=== PATIENT | male | born 1945 | race American Indian/Alaskan Native ===

== ENCOUNTER → 2024-07-28 | Outpatient (CLI) | payer OTHER, SELFPAY ==
[2024-07-28 13:15] LABS: Collection Type, Urine Clean Catch; Squamous Epithelial Cell,Urine 0 /hpf (0-5)
[2024-07-28 13:50] LABS: Basophils # (Auto) 0.1 Thou/mm3 (0.0-0.2); Basophils % (Auto) 1 % (0-2.5); Eosinophils % (Auto) 0 % (0-10); Hematocrit 36.8 % (41.0-53.0); Hemoglobin 13.4 g/dL (13.5-16.0); Immature Granulocytes % (Auto) 0 % (0-0); Immature Granulocytes Auto 0.06 Thou/mm3 (0.00-0.00); Lymphocytes # (Auto) 5.4 Thou/mm3 (1.0-4.8); Lymphocytes % (Auto) 33 % (10-50); Mean Corpuscular HGB Conc 36.4 g/dl (31.0-37.0); Mean Corpuscular Hemoglobin 28.3 pg (25.0-35.0); Mean Corpuscular Volume 78 fL (80-100); Monocytes % (Auto) 6 % (0-12); Neutrophils # (Auto) 9.8 Thou/mm3 (1.8-7.7); Neutrophils % (Auto) 60 % (37-80); Nucleated Red Blood Cell % 0 /100 WBC (0); Platelet Count 347 Thou/mm3 (140-440); RDW Standard Deviation 39.8 fL (35.1-43.9); Red Blood Count 4.73 Miln/mm3 (4.50-5.90); White Blood Count 16.4 Thou/mm3 (3.8-10.6)
[2024-07-28 13:58] LABS: Bilirubin,Urine Negative (Negative); Blood,Urine Negative (Negative); Clarity,Urine Clear (Clear/Hazy); Color,Urine Yellow (Lt Yel-Yel); Glucose, Urine 3+ (Negative); Hyaline Casts,Urine < 1 /hpf (0-1); Ketones,Urine Negative (Negative); Leukocyte Esterase,Urine Negative (Negative); Nitrite,Urine Negative (Negative); PH,Urine 6.5 (5.0-7.0); Protein,Urine Trace (Neg - Trace); RBC,Urine 3 /hpf (0-3); Specific Gravity,Urine 1.024 (1.001-1.035); Urobilinogen,Urine Negative mg/dL (0.0-1.0); WBC,Urine < 1 /hpf (0-5)
[2024-07-28 14:16] LABS: Alanine Aminotransferase 26 U/L (10-49); Albumin, Serum 4.7 gm/dL (3.4-4.8); Alkaline Phosphatase 79 U/L (46-116); Anion Gap 9 (7-16); Aspartate Amino Transferase 23 U/L (0-34); BUN/Creatinine Ratio 18 Ratio (12-20); Bilirubin,Total 0.9 mg/dL (0.3-1.2); Blood Urea Nitrogen 28 mg/dL (9-23); Calcium 9.6 mg/dL (8.3-10.6); Calcium (Corrected) 9.6 mg/dL (8.5-10.1); Carbon Dioxide 24.3 mMol/L (20.0-31.0); Chloride 102 mMol/L (98-107); Creatinine (Component) 1.6 mg/dL (0.6-1.3); Globulin 2.3 gm/dL (2.3-3.5); Glucose 98 mg/dL (74-106); Osmolality,Calculated 275 (275-295); Potassium 4.6 mMol/L (3.4-5.1); Sodium 135 mMol/L (136-145); eGFR 44 See Note
== END | disposition home or self-care (01) ==
LOC: SCTO 12:37
PROVIDERS: PCP Internal Medicine; Referring Provider Internal Medicine Hematology & Oncology; Visit Provider Internal Medicine Hematology & Oncology
DX: C64.1 Malignant neoplasm of right kidney, except renal pelvis (principal); D72.828 Other elevated white blood cell count
CPT/HCPCS: 36415; 80053; 81001; 85025

== ENCOUNTER 2024-07-30 14:28 | Outpatient (RCR) | payer OTHER, SELFPAY ==
--- NOTE | 2024-08-03 00:06 | CTCFLWUP_ITS ---
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 S/p pembrolizumab and axitinib (05/25/2021?08/08/2020). Currently on axitinib 1 mg p.o. daily. Hypertension. Significant worsening of hypertension with pazopanib in the past. History of shingles. History of PE. Currently on Xarelto. REASON FOR TODAY?S VISIT: This is office follow-up visit. Mr. Conway is here at [facility] accompanied by his . Currently he is on axitinib 1 mg p.o. daily. He is t olerating it very well without any significant side effects. His abdominal pain is resolved. Has go od appetite and good energy levels. HISTORY OF PRESENT ILLNESS: Renaldo Conway is a 79-year-old ENG speaking male with h istory of hypertension has the following oncology history. 07/29/2012: Mr. Conway had a right nephrectomy. 11/18/2012: Patient had robotic prostatectomy for prostate cancer? 03/24/2016: Patient had lumbar depression with tumor resection for metastatic renal cell carcinoma April 2016: Patient was started on pazopanib. Unfortunately Mr. Conway was not able to tolerate pazo panib which was causing significant hypotension. Eventually pazopanib discontinued in March 2017. 11/20/2018: Mr. 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 August 2020: Mr. Conway was diagnosed with pulmonary embolus at [facility]. He was started on Xarelto. 03/31/2021: Patient had lumbar spine surgery done at [facility]. Pathology report is not av ailable to me. 04/24/2021: CT scan of the chest with contrast? 05/25/2021: Patient received first cycle of pembrolizumab. Patient also started taking axitinib 1 mg p.o. twice daily on the same day. 09/06/2021: MRI of the lumbar spine without contrast? 10/05/2021: CT scan of the chest abdomen and pelvis with IV contrast? 10/05/2021: CT scan of the lumbar spine without contrast? 03/31/2022: 08/27/2022: CT scan of the chest abdomen and pelvis with IV contrast 12/26/2022: CT scan of the chest abdomen and pelvis with IV contrast 04/23/2023: CT scan of the chest abdomen and pelvis with IV contrast 08/12/2023: PET/CT scan 04/20/2024: CT scan of the chest abdomen and pelvis with IV contrast PAST MEDICAL HISTORY: HTN Metastatic Renal cell Prostate cancer Neuropathy PE - Aug 2020 PAST SURGICAL HISTORY: Right nephrectomy - 2011 Splenectomy and resection pancrreas- 2018 Appendectomy Right inguinal hernia x 2 Sinus surgery - 2018 MEDICATIONS: 1. axitinib - 1 mg 1 tab Daily 2. FLUoxetine - 10 mg 1 tab Daily 3. losartan - 100 mg 1 tab Daily 4. pantoprazole - 20 mg 1 tab Twice a Day 5. pregabalin - 50 mg 2 Capsule Daily 6. timolol - 0.25 % As directed 7. Xarelto - 20 mg 1 tab Daily 8. Xarelto - 15 mg 1 tab Daily?Palabra Meds? Medications Last Reconciled by Beth Dietrich MA on 04/29/2024 ALLERGIES: No Known Drug Allergies REVIEW OF SYSTEMS:?Clone ROS? Neurological: No headache, seizures or blurring of vision. Gastrointestinal: No nausea, vomiting, diarrhea or constipation. Cardiovascular: No palpitations or angina pains. Respiratory: No cough, chest pain or shortness of breath. PHYSICAL EXAMINATION:?ClonePE? VITAL SIGNS: Temperature?99, B/P?142/88, Oxygen?Saturation?97% Weight?272?lbs PAIN: 0 - No pain EYE: Conjunctivae is white MOUTH: Oral cavity is dry. CHEST: Clear to auscultation. No wheezes or rales audible. CARDIAC: Rhythm regular, no murmurs or gallops present. ABDOMEN: Soft. No hepatomegaly. No splenomegaly. EXTREMITIES: No pedal edema or cyanosis. ASSESSMENT: #1 Metastatic renal cell carcinoma, clear-cell type with worsening pulmonary mets as well as retroper itoneal mets as described above. Patient was treated with pazopanib in the past which needed to be discontinued due to significant hyp ertension. Mr. Conway is currently on pembrolizumab and axitinib started on 05/25/2021. Patient stopped axitinib and keytruda after he was in remission 07/22/2024 CT scan shows new 10 mm nodule in the lung which is new MRI of the abdomen is negative Will get PET CT scan to see if the nodule need biopsy Patient is on 1 mg axitinib Do not want to increase the medicine until he is confirmed that he has recurrence RTC after PET scan 2)Hypertension His blood pressure is stable. History of hypertension currently on losartan, amlodipine. 3)History of PE. Was on Xarelto. Xarelto discontinued recently by Dr. Shawn Campos. Electronically Signed by: {Object.Sanct_ID*PnP.NameFL@M}, {Object.Sanct_ID*PnP.Suffix@U} D: {Object.Sanct_Date} T: {Object.Sanct_Time} CC: PCP: Paty Richards (tuleriver) Referring: Steve)Paty This document was completed utilizing speech recognition software. Grammatical errors, random word in sertions, pronoun errors, and incomplete sentences are an occasional consequence of this system due t o software limitations, ambient noise, and hardware issues. Any formal questions or concerns about e content, text or information contained within the body of this dictation should be directly address ed to the provider for clarification.
== END 2024-08-08 23:59 | disposition home or self-care (01) ==
LOC: SCTC 14:28
PROVIDERS: PCP Internal Medicine; Referring Provider Internal Medicine; Visit Provider Internal Medicine Hematology & Oncology
DX: C64.1 Malignant neoplasm of right kidney, except renal pelvis (principal); C78.01 Secondary malignant neoplasm of right lung; C78.6 Secondary malignant neoplasm of retroperitoneum and peritoneum; I10 Essential (primary) hypertension; Z86.711 Personal history of pulmonary embolism
CPT/HCPCS: 99212; G0463

== ENCOUNTER → 2024-07-30 | Outpatient (CLI) | payer OTHER, SELFPAY ==
--- NOTE | 2024-07-30 12:30 | XR_ITS ---
Examination: MRI abdomen with intravenous contrast. MRI abdomen without intravenous contrast. Date and time of exam: July 30, 2024 1349 hours COMPARISON: November 28, 2015 INDICATIONS: Diagnosis renal carcinoma post right nephrectomy splenectomy tail the pancreas removal Technique: Multiple axial, sagittal and coronal sections of the abdomen obtained. Transverse images, TR 6020, TE 107. T1 weighted transverse images, TR 582, TE 9.5. T2-weighted sagittal images, TR 4000, TE 105. T2-weighted sagittal images, TR 4000, TE 5. Coronal images, TR 4210, TE 107. Axial and coronal images are obtained post 5 cc intravenous injection, gadolinium. Findings: No focal liver lesions Gallstones, negative for cholecystitis No common hepatic or common bile duct stones Spleen is not enlarged Absent right kidney Lower pole left renal cyst 34 mm No solid renal mass lesion No soft tissue tumor in the renal fossa No interval abdominal lymphadenopathy No bowel obstruction No ascites IMPRESSION: No interval findings of metastatic disease
== END | disposition home or self-care (01) ==
LOC: SMRI 12:15
PROVIDERS: PCP Internal Medicine; Referring Provider Internal Medicine Hematology & Oncology; Visit Provider Internal Medicine Hematology & Oncology
DX: C64.1 Malignant neoplasm of right kidney, except renal pelvis (principal); D72.828 Other elevated white blood cell count
CPT/HCPCS: 74183; A9579

== ENCOUNTER → 2024-09-03 | Outpatient (CLI) | payer OTHER, SELFPAY ==
--- NOTE | 2024-09-03 15:30 | XR_ITS ---
EXAMINATION: PET/CT FUSION SKULL TO THIGH EXAM DATE AND TIME: September 03, 2024 1613 hours INDICATIONS: Diagnosis renal cancer post treatment restaging CTDI:vol (mGy) 9.6 DLP: (mGycm) 1005.63 PROCEDURE: 16.86 mCi FDG was administered intravenously To allow for distribution and uptake of radiotracer, the patient was allowed to rest quietly in a shielded room. Imaging was performed on an integrated 16-slice PET/CT scanner, with scanning from the skull base to the mid thigh. Serum blood glucose at the time of the injection was measured 86 mg/dL. CT scanning was performed without oral or intravenous contrast material. FINDINGS: Head and Neck: There is no lyudmila hypermetabolism in the neck. The visualized portions of the brain are normal in appearance on CT. Chest: There is no lyudmila hypermetabolism in the chest. There are no pulmonary nodules. Abdomen and Pelvis: There is no lyudmila hypermetabolism in retroperitoneal or pelvic chains. The spleen is normal in size and FDG avidity. Musculoskeletal: Marrow uptake is within normal range. IMPRESSION: No interval metastatic disease Please see the high-resolution CT chest report July 22, 2024 at C4 6 month follow-up CT chest
== END | disposition home or self-care (01) ==
LOC: CDIM 15:21
PROVIDERS: PCP Internal Medicine; Referring Provider Internal Medicine Hematology & Oncology; Visit Provider Internal Medicine Hematology & Oncology
DX: D72.828 Other elevated white blood cell count (principal); C64.1 Malignant neoplasm of right kidney, except renal pelvis
CPT/HCPCS: 78815; A9552

== ENCOUNTER → 2024-09-10 | Outpatient (CLI) | payer OTHER, SELFPAY ==
[2024-09-10 16:26] LABS: Basophils # (Auto) 0.1 Thou/mm3 (0.0-0.2); Basophils % (Auto) 1 % (0-2.5); Eosinophils % (Auto) 0 % (0-10); Hematocrit 32.8 % (41.0-53.0); Hemoglobin 11.7 g/dL (13.5-16.0); Immature Granulocytes % (Auto) 1 % (0-0); Immature Granulocytes Auto 0.07 Thou/mm3 (0.00-0.00); Lymphocytes # (Auto) 5.4 Thou/mm3 (1.0-4.8); Lymphocytes % (Auto) 39 % (10-50); Mean Corpuscular HGB Conc 35.7 g/dl (31.0-37.0); Mean Corpuscular Hemoglobin 28.4 pg (25.0-35.0); Mean Corpuscular Volume 80 fL (80-100); Monocytes # (Auto) 1.2 Thou/mm3 (0.0-0.8); Monocytes % (Auto) 8 % (0-12); Neutrophils # (Auto) 7.2 Thou/mm3 (1.8-7.7); Neutrophils % (Auto) 52 % (37-80); Nucleated Red Blood Cell % 0 /100 WBC (0); Platelet Count 270 Thou/mm3 (140-440); RDW Standard Deviation 41.8 fL (35.1-43.9); Red Blood Count 4.12 Miln/mm3 (4.50-5.90)
[2024-09-10 16:53] LABS: Alanine Aminotransferase 24 U/L (10-49); Albumin, Serum 4.5 gm/dL (3.4-4.8); Alkaline Phosphatase 61 U/L (46-116); Anion Gap 8 (7-16); Aspartate Amino Transferase 16 U/L (0-34); BUN/Creatinine Ratio 22 Ratio (12-20); Bilirubin,Total 0.5 mg/dL (0.3-1.2); Blood Urea Nitrogen 37 mg/dL (9-23); Calcium 9.5 mg/dL (8.3-10.6); Calcium (Corrected) 9.5 mg/dL (8.5-10.1); Carbon Dioxide 27.2 mMol/L (20.0-31.0); Chloride 103 mMol/L (98-107); Creatinine (Component) 1.7 mg/dL (0.6-1.3); Globulin 2.2 gm/dL (2.3-3.5); Glucose 93 mg/dL (74-106); Osmolality,Calculated 284 (275-295); Potassium 4.4 mMol/L (3.4-5.1); Sodium 138 mMol/L (136-145); Total Protein 6.7 gm/dL (5.7-8.2); eGFR 41 See Note
== END | disposition home or self-care (01) ==
LOC: SCTO 14:40
PROVIDERS: PCP Nurse Practitioner Family; Referring Provider Internal Medicine Hematology & Oncology; Visit Provider Internal Medicine Hematology & Oncology
DX: C64.1 Malignant neoplasm of right kidney, except renal pelvis (principal); D72.828 Other elevated white blood cell count
CPT/HCPCS: 36415; 80053; 85025

== ENCOUNTER 2024-09-14 13:02 | Outpatient (RCR) | payer OTHER, SELFPAY | END 2024-10-09 23:59 | disposition home or self-care (01) | LOC: SCTC 13:02 | PROVIDERS: PCP Nurse Practitioner Family; Referring Provider Nurse Practitioner Family; Visit Provider Nurse Practitioner Family | DX: C64.1 Malignant neoplasm of right kidney, except renal pelvis (principal); C78.02 Secondary malignant neoplasm of left lung; C78.01 Secondary malignant neoplasm of right lung; C78.6 Secondary malignant neoplasm of retroperitoneum and peritoneum; I10 Essential (primary) hypertension; Z86.711 Personal history of pulmonary embolism | CPT/HCPCS: 99212; G0463 ==

== ENCOUNTER → 2024-11-17 | Outpatient (CLI) | payer OTHER, SELFPAY ==
[2024-11-17 12:38] LABS: Basophils # (Auto) 0.1 Thou/mm3 (0.0-0.2); Basophils % (Auto) 1 % (0-2.5); Eosinophils % (Auto) 0 % (0-10); Hematocrit 37.9 % (41.0-53.0); Hemoglobin 13.1 g/dL (13.5-16.0); Immature Granulocytes % (Auto) 0 % (0-0); Immature Granulocytes Auto 0.04 Thou/mm3 (0.00-0.00); Lymphocytes % (Auto) 46 % (10-50); Mean Corpuscular HGB Conc 34.6 g/dl (31.0-37.0); Mean Corpuscular Volume 81 fL (80-100); Monocytes # (Auto) 1.1 Thou/mm3 (0.0-0.8); Monocytes % (Auto) 8 % (0-12); Neutrophils # (Auto) 5.8 Thou/mm3 (1.8-7.7); Neutrophils % (Auto) 45 % (37-80); Nucleated Red Blood Cell % 0 /100 WBC (0); Platelet Count 269 Thou/mm3 (140-440); RDW Standard Deviation 42.9 fL (35.1-43.9); Red Blood Count 4.68 Miln/mm3 (4.50-5.90)
[2024-11-17 12:59] LABS: Alanine Aminotransferase 23 U/L (10-49); Albumin, Serum 4.5 gm/dL (3.4-4.8); Albumin/Globulin Ratio 2.3 (1.2-2.2); Alkaline Phosphatase 61 U/L (46-116); Anion Gap 5 (7-16); Aspartate Amino Transferase 20 U/L (0-34); BUN/Creatinine Ratio 19 Ratio (12-20); Bilirubin,Total 0.5 mg/dL (0.3-1.2); Blood Urea Nitrogen 33 mg/dL (9-23); Calcium 9.6 mg/dL (8.3-10.6); Calcium (Corrected) 9.6 mg/dL (8.5-10.1); Carbon Dioxide 25.7 mMol/L (20.0-31.0); Chloride 109 mMol/L (98-107); Creatinine (Component) 1.7 mg/dL (0.6-1.3); Glucose 94 mg/dL (74-106); Osmolality,Calculated 286 (275-295); Potassium 4.9 mMol/L (3.4-5.1); Sodium 140 mMol/L (136-145); Total Protein 6.5 gm/dL (5.7-8.2); eGFR 41 See Note
== END | disposition home or self-care (01) ==
LOC: SCTO 11:14
PROVIDERS: PCP Nurse Practitioner Family; Referring Provider Nurse Practitioner Family; Visit Provider Nurse Practitioner Family
DX: C64.1 Malignant neoplasm of right kidney, except renal pelvis (principal); D72.828 Other elevated white blood cell count
CPT/HCPCS: 36415; 80053; 85025

== ENCOUNTER 2024-11-18 13:00 | Outpatient (RCR) | payer OTHER, SELFPAY ==
--- NOTE | 2024-12-06 22:34 | CTCFLWUP_ITS ---
Patient: RENALDO CONWAY : 1945 Page 9 of 9 FOLLOW UP NOTE DATE OF SERVICE: 11/18/2024 NAME: RENALDO CONWAY ACCOUNT: [id number] : 1945 AGE: 79 INTERVAL HISTORY: Patient is here for follow-up visit for kidney cancer. Patient is currently on axitinib 1 mg p.o. daily. Tolerating it well without any side effects. PET/CT show no interval metastatic disease, pulmonary nodule. Patient reports good energy levels, has been active at home. Reports good appetite. Patient accompanied by , no concerns from and patient. 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 S/p pembrolizumab and axitinib (05/25/2021?08/08/2020). Patient requested a break from pembrolizumab Currently on axitinib 1 mg p.o. daily. Hypertension. Significant worsening of hypertension with pazopanib in the past. 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 DIAGNOSIS: Malignant neoplasm of right kidney, except renal pelvis [ICD10] C64.1 DATE OF DIAGNOSIS: 07/29/2012 STAGE/TNM: Stage IV right kidney renal cell carcinoma, clear?cell type with pulmonary mets as well as retroperitoneal mets. TREATMENT HISTORY: Care?Plan Start?Date Cycle Day Intent [id number]?200 05/25/2021 1 21 Palliative HISTORY OF PRESENT ILLNESS: Renaldo Conway is a 79-year-old ENG speaking male with history of hypertension has the following oncology history. 07/29/2012: Mr. Conway had a right nephrectomy. 11/18/2012: Patient had robotic prostatectomy for prostate cancer? 03/24/2016: Patient had lumbar depression with tumor resection for metastatic renal cell carcinoma April 2016: Patient was started on pazopanib. Unfortunately Mr. Conway was not able to tolerate pazopanib which was causing significant hypotension. Eventually pazopanib discontinued in March 2017. 11/20/2018: Mr. 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 August 2020: Mr. Conway was diagnosed with pulmonary embolus at [facility]. He was started on Xarelto. 03/31/2021: Patient had lumbar spine surgery done at [facility]. Pathology report is not available to me. 04/24/2021: CT scan of the chest with contrast? 05/25/2021: Patient received first cycle of pembrolizumab. Patient also started taking axitinib 1 mg p.o. twice daily on the same day. 09/06/2021: MRI of the lumbar spine without contrast? 10/05/2021: CT scan of the chest abdomen and pelvis with IV contrast? 10/05/2021: CT scan of the lumbar spine without contrast? 03/31/2022: 08/27/2022: CT scan of the chest abdomen and pelvis with IV contrast 12/26/2022: CT scan of the chest abdomen and pelvis with IV contrast 04/23/2023: CT scan of the chest abdomen and pelvis with IV contrast 08/12/2023: PET/CT scan 04/20/2024: CT scan of the chest abdomen and pelvis with IV contrast OTHER MEDICAL HISTORY/CONDITIONS: Hypertension Diabetes FAMILY HISTORY: SOCIAL HISTORY: MEDICATIONS: 1. axitinib - 1 mg 1 tab Daily 2. FLUoxetine - 20 mg 1 Capsule As directed 3. Jardiance - 25 mg 1 tab Daily 4. olmesartan - 40 mg 1 tab As directed 5. Ozempic - 0.25 mg or 0.5 mg(2 mg/1.5 mL) 1 Weekly 6. pantoprazole - 40 mg 1 Daily 7. pantoprazole - 20 mg 1 tab Twice a Day 8. timolol - 0.25 % As directed 9. Xarelto - 20 mg 1 tab Daily 10. Xarelto - 15 mg 1 tab Daily Medications Last Reconciled by Eve Rodarte MD on 11/18/2024 ALLERGIES: No Known Drug Allergies REVIEW OF SYSTEMS: A complete 14-point review of systems was performed and is negative except as noted in interval history. PHYSICAL EXAMINATION: VITAL SIGNS: Temperature?99.3, B/P?137/88, Oxygen?Saturation?94% Weight?279?lbs PAIN: 0 - No pain ECOG Performance Status: None EYE: Conjunctivae is white MOUTH: No lesions CHEST: No respiratory distress CARDIAC: Rhythm regular. EXTREMITIES: No cyanosis. LABORATORY DATA: I have personally reviewed and interpreted each of the patient?s relevant lab tests, abnormal findings are below: Date 09/10/24 11/17/24 ??WHITE?BLOOD?COUNT?(Thou/mm3) ? 14.0?H 13.0?H ??RED?BLOOD?COUNT?(Miln/mm3) ? 4.12?L 4.68 ??HEMOGLOBIN?(gm/dl) ? 11.7?L 13.1?L ??HEMATOCRIT?(%) ? 32.8?L 37.9?L ??PLATELET?COUNT?(Thou/mm3) ? 270 269 ??NEUTROPHILS?%,?AUTO?(%) ? 52 45 ??LYMPH?%,?AUTO?(%) ? 39 46 ??NEUTROPHILS,?AUTO?(Thou/mm3) ? 7.2 5.8 ??GLUCOSE,RANDOM?(mg/dL) 93 ? 94 ??BLOOD?UREA?NITROGEN?(mg/dL) 37?H ? 33?H ??CREATININE?(mg/dL) 1.70?H ? 1.70?H ??SODIUM?(mmol/L) 138 ? 140 ??POTASSIUM?(mmol/L) 4.4 ? 4.9 ??CHLORIDE?(mmol/L) 103 ? 109?H ??CrCl?(CandG)?(ml/min) 48.07 ? 48.61 ??AST/SGOT?(Unit/L) 16 ? 20 ??ALT/SGPT?(Unit/L) 24 ? 23 ??ALKALINE?PHOSPHATASE?(Unit/L) 61 ? 61 ??BILIRUBIN,?TOTAL?(mg/dL) 0.5 ? 0.5 ??PROTEIN?TOTAL?(gm/dl) 6.7 ? 6.5 ??ALBUMIN,?SERUM?(gm/dl) 4.5 ? 4.5 ??GLOBULIN?(gm/dl) 2.2?L ? 2.0?L ??ALBUMIN/GLOBULIN?RATIO 2.0 ? 2.3?H ??CALCIUM,?SERUM?(mg/dL) 9.5 ? 9.6 ??CALCIUM?SERUM?(CORRECTED)?(mg/dL) 9.5 ? 9.6 ASSESSMENT/PLAN: 1. Metastatic renal cell carcinoma, clear-cell type with worsening pulmonary mets as well as retroperitoneal mets as described above. Patient was treated with pazopanib in the past which needed to be discontinued due to significant hypertension. Mr. Conway is currently on axitinib 1 mg started on 05/25/2021, patient reports previously he was unable to tolerate increased dosage due to increase in hypertension. Patient stopped axitinib and keytruda after he was in remission, Patient restarted axitinib Continues on break from Keytruda, patient requested break from Keytruda, was tolerating it well when he was on. 07/22/2024 CT scan shows new 10 mm nodule in the lung which is new MRI of the abdomen is negative PET CT scan was negative for interval metastatic disease, no pulmonary nodules. Continue with axitinib at 1 mg daily as PET/CT did not show recurrence. Do not want to increase the medicine until he is confirmed that he has recurrence 2. Hypertension His blood pressure is stable. currently on losartan, amlodipine. 3. History of PE. Was on Xarelto. Xarelto discontinued recently by Dr. Shawn Campos. CBC CMP CT chest without contrast, 6-month follow-up due 01/2025 ORDERS: Order # Description [id number] Comprehensive Metabolic Panel - 12 + CBC with Auto Diff RETURN TO CLINIC: 4 months BILLING AND COMPLIANCE: I reviewed external records from providers outside my specialty as summarized above. I spent a total of 50 minutes on this patient?s care on the day of their visit excluding time spent related to any billed procedures. This time includes time spent with the patient as well as time spent documenting in the medical record, reviewing patients records and tests, obtaining history, placing orders, communicating with other healthcare professionals, counseling the patient, family or caregiver, and/or care coordination for the diagnoses above. Electronically Signed by: {Object.Sanct_ID*PnP.NameFL@M}, {Object.Sanct_ID*PnP.Suffix@U} D: {Object.Sanct_Date} T: {Object.Sanct_Time} CC: PCP: Paty Richards (tuleriver) Referring: Paty Richards (tuleriver) This document was completed utilizing speech recognition software. Grammatical errors, random word insertions, pronoun errors, and incomplete sentences are an occasional consequence of this system due to software limitations, ambient noise, and hardware issues. Any formal questions or concerns about the content, text or information contained within the body of this dictation should be directly addressed to the provider for clarification.
== END 2024-12-07 23:59 | disposition home or self-care (01) ==
LOC: SCTC 13:00
PROVIDERS: PCP Nurse Practitioner Family; Referring Provider Nurse Practitioner Family; Visit Provider Family Medicine
DX: C64.1 Malignant neoplasm of right kidney, except renal pelvis (principal); C78.02 Secondary malignant neoplasm of left lung; C78.01 Secondary malignant neoplasm of right lung; C78.6 Secondary malignant neoplasm of retroperitoneum and peritoneum; I10 Essential (primary) hypertension; Z86.711 Personal history of pulmonary embolism
CPT/HCPCS: 99212; G0463

== ENCOUNTER → 2024-12-15 | Outpatient (CLI) | payer OTHER, SELFPAY ==
[2024-12-15 09:26] LABS: Misc Send Out* See Sep Rpt
== END | disposition home or self-care (01) ==
PROVIDERS: PCP Nurse Practitioner Family; Referring Provider Internal Medicine Hematology & Oncology; Visit Provider Internal Medicine Hematology & Oncology
DX: C64.1 Malignant neoplasm of right kidney, except renal pelvis (principal); D72.828 Other elevated white blood cell count

== ENCOUNTER 2025-01-21 13:02 | Outpatient (RCR) | payer MEDICAID, OTHER, SELFPAY ==
[2025-01-13 09:18] LABS: Basophils # (Auto) 0.1 Thou/mm3 (0.0-0.2); Basophils % (Auto) 0 % (0-2.5); Eosinophils # (Auto) 0.1 Thou/mm3 (0.0-0.5); Eosinophils % (Auto) 1 % (0-10); Hematocrit 39.6 % (41.0-53.0); Hemoglobin 14.3 g/dL (13.5-16.0); Immature Granulocytes % (Auto) 0 % (0-0); Immature Granulocytes Auto 0.05 Thou/mm3 (0.00-0.00); Lymphocytes % (Auto) 34 % (10-50); Mean Corpuscular HGB Conc 36.1 g/dl (31.0-37.0); Mean Corpuscular Hemoglobin 28.7 pg (25.0-35.0); Mean Corpuscular Volume 79 fL (80-100); Monocytes # (Auto) 1.1 Thou/mm3 (0.0-0.8); Monocytes % (Auto) 9 % (0-12); Neutrophils # (Auto) 6.5 Thou/mm3 (1.8-7.7); Neutrophils % (Auto) 55 % (37-80); Nucleated Red Blood Cell # 0.02 Thou/mm3 (0.00-0.00); Nucleated Red Blood Cell % 0 /100 WBC (0); Platelet Count 304 Thou/mm3 (140-440); Red Blood Count 4.99 Miln/mm3 (4.50-5.90); White Blood Count 11.8 Thou/mm3 (3.8-10.6)
[2025-01-13 09:38] LABS: Alanine Aminotransferase 19 U/L (10-49); Albumin, Serum 4.5 gm/dL (3.4-4.8); Albumin/Globulin Ratio 1.9 (1.2-2.2); Alkaline Phosphatase 70 U/L (46-116); Anion Gap 9 (7-16); Aspartate Amino Transferase 17 U/L (0-34); BUN/Creatinine Ratio 13 Ratio (12-20); Blood Urea Nitrogen 20 mg/dL (9-23); Calcium 9.4 mg/dL (8.3-10.6); Calcium (Corrected) 9.4 mg/dL (8.5-10.1); Carbon Dioxide 26.7 mMol/L (20.0-31.0); Chloride 103 mMol/L (98-107); Creatinine (Component) 1.6 mg/dL (0.6-1.3); Globulin 2.4 gm/dL (2.3-3.5); Glucose 94 mg/dL (74-106); Osmolality,Calculated 280 (275-295); Potassium 3.9 mMol/L (3.4-5.1); Sodium 139 mMol/L (136-145); Total Protein 6.9 gm/dL (5.7-8.2); eGFR 44 See Note
--- NOTE | 2025-01-28 14:18 | CTCFLWUP_ITS ---
Patient: RENALDO CONWAY : 1945 Page 8 of 10 FOLLOW UP NOTE DATE OF SERVICE: 01/21/2025 NAME: RENALDO CONWAY ACCOUNT: [id number] : 1945 AGE: 80 INTERVAL HISTORY: Patient is here for follow-up visit for kidney cancer. Patient is currently on axitinib 1 mg p.o. daily. Tolerating it well without any side effects. PET/CT show no interval metastatic disease, pulmonary nodule. Patient reports good energy levels, has been active at home. Reports good appetite. Patient accompanied by , no concerns from and patient. Subjective: Chief Complaint Nausea and vomiting for about a week and a half, loss of appetite, excessive sleepiness History of Present Illness Jann Dugan, an 80-year-old male with a history of kidney cancer, presents for follow-up. He reports experiencing nausea and vomiting for about a week and a half, along with decreased appetite and increased sleepiness. Mr. Dugan has been taking Zofran to manage his nausea and vomiting. He reports that the medication has been effective in controlling these symptoms, with his last dose taken the night before the visit. He mentions that he hasn't experienced nausea or vomiting since taking the medication. The patient also notes that he has been sleeping more than usual, which he attributes to possibly having the flu. Mr. Dugan has recently started taking Ozempic, which he reports makes him feel miserable, weak, and reduces his desire to eat. As a result of these medication effects and symptoms, he has lost 17 pounds. The patient expresses concern about these symptoms, particularly mentioning that excessive sleepiness could be a sign of a brain tumor. Regarding his cancer treatment, Mr. Dugan is currently taking 1 mg of axitinib. His last PET scan in August was negative, indicating no evidence of active cancer at that time. The patient has a history of multiple cancer-related surgeries, including removal of his main kidney in 2011, tumor removal from his spine in 2015, and removal of his pancreas and spleen in 2019 due to metastatic kidney cancer. Medications and Supplements - Axitinib 1 mg - Zofran - Used for nausea and vomiting - Ozempic - Causes nausea, weakness, and loss of appetite - Patient lost 17 pounds Review of Systems General: Positive for fatigue, decreased appetite, and weight loss. Gastrointestinal: Positive for nausea and vomiting. Neurological: Positive for excessive sleepiness. 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 S/p pembrolizumab and axitinib (05/25/2021?08/08/2020). Patient requested a break from pembrolizumab Currently on axitinib 1 mg p.o. daily. Hypertension. Significant worsening of hypertension with pazopanib in the past. 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 DIAGNOSIS: Malignant neoplasm of right kidney, except renal pelvis [ICD10] C64.1 DATE OF DIAGNOSIS: 07/29/2012 STAGE/TNM: Stage IV right kidney renal cell carcinoma, clear?cell type with pulmonary mets as well as retroperitoneal mets. TREATMENT HISTORY: Care?Plan Start?Date Cycle Day Intent KEYTRUDA?200 05/25/2021 1 21 Palliative HISTORY OF PRESENT ILLNESS: Renaldo Conway is a 80-year-old ENG speaking male with history of hypertension has the following oncology history. 07/29/2012: Mr. Conway had a right nephrectomy. 11/18/2012: Patient had robotic prostatectomy for prostate cancer? 03/24/2016: Patient had lumbar depression with tumor resection for metastatic renal cell carcinoma April 2016: Patient was started on pazopanib. Unfortunately Mr. Conway was not able to tolerate pazopanib which was causing significant hypotension. Eventually pazopanib discontinued in March 2017. 11/20/2018: Mr. 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 August 2020: Mr. Conway was diagnosed with pulmonary embolus at [facility]. He was started on Xarelto. 03/31/2021: Patient had lumbar spine surgery done at [facility]. Pathology report is not available to me. 04/24/2021: CT scan of the chest with contrast? 05/25/2021: Patient received first cycle of pembrolizumab. Patient also started taking axitinib 1 mg p.o. twice daily on the same day. 09/06/2021: MRI of the lumbar spine without contrast? 10/05/2021: CT scan of the chest abdomen and pelvis with IV contrast? 10/05/2021: CT scan of the lumbar spine without contrast? 03/31/2022: 08/27/2022: CT scan of the chest abdomen and pelvis with IV contrast 12/26/2022: CT scan of the chest abdomen and pelvis with IV contrast 04/23/2023: CT scan of the chest abdomen and pelvis with IV contrast 08/12/2023: PET/CT scan 04/20/2024: CT scan of the chest abdomen and pelvis with IV contrast OTHER MEDICAL HISTORY/CONDITIONS: Hypertension Diabetes FAMILY HISTORY: SOCIAL HISTORY: MEDICATIONS: 1. axitinib - 1 mg 1 tab Daily 2. FLUoxetine - 20 mg 1 Capsule As directed 3. olmesartan - 40 mg 1 tab As directed 4. timolol - 0.25 % As directed 5. Xarelto - 20 mg 1 tab Daily 6. Xarelto - 15 mg 1 tab Daily Medications Last Reconciled by Beth Dietrich MA on 01/21/2025 ALLERGIES: No Known Drug Allergies REVIEW OF SYSTEMS: A complete 14-point review of systems was performed and is negative except as noted in interval history. PHYSICAL EXAMINATION: VITAL SIGNS: Temperature?96.8, B/P?111/75, Oxygen?Saturation?95% Weight?265?lbs PAIN: 0 - No pain ECOG Performance Status: None EYE: Conjunctivae is white MOUTH: No lesions CHEST: No respiratory distress CARDIAC: Rhythm regular. EXTREMITIES: No cyanosis. LABORATORY DATA: I have personally reviewed and interpreted each of the patient?s relevant lab tests, abnormal findings are below: Date 11/17/24 01/13/25 ??WHITE?BLOOD?COUNT?(Thou/mm3) 13.0?H 11.8?H ??RED?BLOOD?COUNT?(Miln/mm3) 4.68 4.99 ??HEMOGLOBIN?(gm/dl) 13.1?L 14.3 ??HEMATOCRIT?(%) 37.9?L 39.6?L ??PLATELET?COUNT?(Thou/mm3) 269 304 ??NEUTROPHILS?%,?AUTO?(%) 45 55 ??LYMPH?%,?AUTO?(%) 46 34 ??NEUTROPHILS,?AUTO?(Thou/mm3) 5.8 6.5 ??GLUCOSE,RANDOM?(mg/dL) 94 94 ??BLOOD?UREA?NITROGEN?(mg/dL) 33?H 20 ??CREATININE?(mg/dL) 1.70?H 1.60?H ??SODIUM?(mmol/L) 140 139 ??POTASSIUM?(mmol/L) 4.9 3.9 ??CHLORIDE?(mmol/L) 109?H 103 ??CrCl?(CandG)?(ml/min) 48.61 51.17 ??AST/SGOT?(Unit/L) 20 17 ??ALT/SGPT?(Unit/L) 23 19 ??ALKALINE?PHOSPHATASE?(Unit/L) 61 70 ??BILIRUBIN,?TOTAL?(mg/dL) 0.5 1.0 ??PROTEIN?TOTAL?(gm/dl) 6.5 6.9 ??ALBUMIN,?SERUM?(gm/dl) 4.5 4.5 ??GLOBULIN?(gm/dl) 2.0?L 2.4 ??ALBUMIN/GLOBULIN?RATIO 2.3?H 1.9 ??CALCIUM,?SERUM?(mg/dL) 9.6 9.4 ??CALCIUM?SERUM?(CORRECTED)?(mg/dL) 9.6 9.4 ASSESSMENT/PLAN: 1. Metastatic renal cell carcinoma, clear-cell type with worsening pulmonary mets as well as retroperitoneal mets as described above. Patient was treated with pazopanib in the past which needed to be discontinued due to significant hypertension. Mr. Conway is currently on axitinib 1 mg started on 05/25/2021, patient reports previously he was unable to tolerate increased dosage due to increase in hypertension. Patient stopped axitinib and keytruda after he was in remission, Patient restarted axitinib Continues on break from Keytruda, patient requested break from Keytruda, was tolerating it well when he was on. 07/22/2024 CT scan shows new 10 mm nodule in the lung which is new MRI of the abdomen is negative PET CT scan was negative for interval metastatic disease, no pulmonary nodules. Continue with axitinib at 1 mg daily as PET/CT did not show recurrence. Do not want to increase the medicine until he is confirmed that he has recurrence Plan: - Continue axitinib 1 mg (dose and frequency not specified) - Cancel scheduled CT scan of chest on January 27, 2025 - Proceed with whole body PET-CT scan on February 04, 2025 - Schedule MRI brain for surveillance (timing not specified) - Attempt to obtain 2012 kidney specimen for Betsy testing - Follow-up after PET-CT scan results Nausea and Vomiting Assessment: Patient reports nausea and vomiting for approximately 1.5 weeks, possibly related to recent Ozempic injection. Symptoms have been partially controlled with ondansetron (Zofran). Differential diagnosis includes medication side effect (Ozempic), viral illness, or less likely, brain metastasis. Plan: - Continue ondansetron (Zofran) as needed for nausea and vomiting - Consider discontinuing Ozempic if symptoms persist or worsen - Monitor for resolution of symptoms Fatigue Assessment: Patient reports increased sleepiness and fatigue. This could be related to recent nausea and vomiting, medication side effects, or underlying illness. Plan: - Monitor fatigue symptoms - Reassess after resolution of nausea and vomiting 2. Hypertension His blood pressure is stable. currently on losartan, amlodipine. 3. History of PE. Was on Xarelto. Xarelto discontinued recently by Dr. Shawn Campos. CBC CMP CT chest without contrast, 6-month follow-up due 01/2025?just complete pet scan only ORDERS: Order # Description RETURN TO CLINIC: BILLING AND COMPLIANCE: I reviewed external records from providers outside my specialty as summarized above. I spent a total of 50 minutes on this patient?s care on the day of their visit excluding time spent related to any billed procedures. This time includes time spent with the patient as well as time spent documenting in the medical record, reviewing patients records and tests, obtaining history, placing orders, communicating with other healthcare professionals, counseling the patient, family or caregiver, and/or care coordination for the diagnoses above. Electronically Signed by: {Object.Sanct_ID*PnP.NameFL@M}, {Object.Sanct_ID*PnP.Suffix@U} D: {Object.Sanct_Date} T: {Object.Sanct_Time} CC: PCP: Maurice(robert)Paty Referring: Steve)Paty This document was completed utilizing speech recognition software. Grammatical errors, random word insertions, pronoun errors, and incomplete sentences are an occasional consequence of this system due to software limitations, ambient noise, and hardware issues. Any formal questions or concerns about the content, text or information contained within the body of this dictation should be directly addressed to the provider for clarification.
== END 2025-02-06 23:59 | disposition home or self-care (01) ==
LOC: SCTC 13:02
PROVIDERS: Nurse Practitioner Family; PCP Nurse Practitioner Family; Referring Provider Nurse Practitioner Family; Visit Provider Internal Medicine Hematology & Oncology
DX: C64.1 Malignant neoplasm of right kidney, except renal pelvis (principal); R11.2 Nausea with vomiting, unspecified; R53.83 Other fatigue; I10 Essential (primary) hypertension; Z86.711 Personal history of pulmonary embolism
CPT/HCPCS: 80053; 85025; 96360; 99212; J7040; G0463

== ENCOUNTER 2025-02-01 14:38 | Emergency (ER) | payer MEDICARE, MEDICAID, SELFPAY ==
[2025-02-01] VITALS (11 sets, daily range): BP systolic 107–161; BP diastolic 71–89; PULSE 60–77; RESP 7–20; TEMP 36.4–37.2; O2SAT 93–95; BMI 34.9
--- NOTE | 2025-02-01 15:01 | EKG_ITS ---
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
--- NOTE | 2025-02-01 15:01 | XR_ITS ---
Examination: PA lateral chest 2 views TECHNIQUE: Upright PA and lateral chest 2 views Date and time: February 01, 2025 1526 hours Comparison June 30, 2024 INDICATIONS: Coughing beginning 3 days ago. FINDINGS: Normal heart size Pneumonia left base obscuring detail medial portion left hemidiaphragm Right lung clear Osseous structures intact IMPRESSION: Left base pneumonia
--- NOTE | 2025-02-01 15:02 | PD.EDRME ---
Rapid Medical Screening Exam RME Arrival date/time: 02/01/25 14:38 80-year-old male with cancer presents to the emergency department for complaint of generalized weakness persistent and worsening over the last 3 weeks Chief Complaint: Weakness Time Seen by Provider: 02/01/25 14:46 Vital signs: Vital Signs Temperature 99.0 F 02/01/25 14:53 Pulse Rate 77 02/01/25 14:53 Respiratory Rate 20 02/01/25 14:53 Blood Pressure 107/71 02/01/25 14:53 Pulse Oximetry (%) 95 02/01/25 14:53 Oxygen Delivery Method Room Air 02/01/25 14:53
[2025-02-01 15:17] LABS: Lactate (Lactic Acid) 1.4 mMol/L (0.4-2.0)
[2025-02-01 15:19] LABS: Basophils # (Auto) 0.1 Thou/mm3 (0.0-0.2); Basophils % (Auto) 1 % (0-2.5); Eosinophils # (Auto) 0.5 Thou/mm3 (0.0-0.5); Eosinophils % (Auto) 5 % (0-10); Hematocrit 37.6 % (41.0-53.0); Hemoglobin 13.7 g/dL (13.5-16.0); Immature Granulocytes % (Auto) 0 % (0-0); Immature Granulocytes Auto 0.02 Thou/mm3 (0.00-0.00); Lymphocytes # (Auto) 4.9 Thou/mm3 (1.0-4.8); Lymphocytes % (Auto) 46 % (10-50); Mean Corpuscular HGB Conc 36.4 g/dl (31.0-37.0); Mean Corpuscular Hemoglobin 28.6 pg (25.0-35.0); Mean Corpuscular Volume 79 fL (80-100); Monocytes # (Auto) 0.9 Thou/mm3 (0.0-0.8); Monocytes % (Auto) 9 % (0-12); Neutrophils # (Auto) 4.2 Thou/mm3 (1.8-7.7); Neutrophils % (Auto) 40 % (37-80); Nucleated Red Blood Cell % 0 /100 WBC (0); Platelet Count 344 Thou/mm3 (140-440); RDW Standard Deviation 37.8 fL (35.1-43.9); Red Blood Count 4.79 Miln/mm3 (4.50-5.90); White Blood Count 10.7 Thou/mm3 (3.8-10.6)
[2025-02-01 15:34] LABS: INR 1.4 (0.9-1.3); Partial Thromboplastin Time 35.9 Seconds (22.0-36.0); Prothrombin Time 14.6 Seconds (9.0-12.2)
[2025-02-01 15:47] LABS: Alanine Aminotransferase 13 U/L (10-49); Albumin, Serum 4.3 gm/dL (3.4-4.8); Albumin/Globulin Ratio 1.8 (1.2-2.2); Alkaline Phosphatase 76 U/L (46-116); Anion Gap 11 (7-16); Aspartate Amino Transferase 21 U/L (0-34); BUN/Creatinine Ratio 9 Ratio (12-20); Bilirubin,Total 0.9 mg/dL (0.3-1.2); Blood Urea Nitrogen 14 mg/dL (9-23); Calcium 10.3 mg/dL (8.3-10.6); Calcium (Corrected) 10.3 mg/dL (8.5-10.1); Carbon Dioxide 25.9 mMol/L (20.0-31.0); Chloride 100 mMol/L (98-107); Creatinine (Component) 1.6 mg/dL (0.6-1.3); Globulin 2.4 gm/dL (2.3-3.5); Glucose 128 mg/dL (74-106); Osmolality,Calculated 276 (275-295); Potassium 3.8 mMol/L (3.4-5.1); Procalcitonin 0.11 ng/ml (0.0-0.49); Sodium 137 mMol/L (136-145); Total Protein 6.7 gm/dL (5.7-8.2); Troponin I < 0.002 ng/mL (0.0-0.045); eGFR 43 See Note
--- NOTE | 2025-02-01 15:57 | EDNOTE_ITS ---
ED General RME/HPI General Chief complaint: Weakness Stated complaint: WEAK, CAN BARELY TALK/WALK/EAT X 3 WKS, VOMIT Time Seen by Provider: 02/01/25 14:46 Arrival date/time: 02/01/25 14:38 CC: Generalized weakness HPI ongoing for the past 3 weeks patient states that he is tired and gets mildly short of breath after walking 20 yards which is new. Patient states there have been no significant medication changes in the last month. Patient denies fall fever chills shortness of breath or difficulty breathing. Patient states he has a history of kidney cancer. Dr. Radha Campos is his project lead. Review the medical record show the patient has stage IV right renal cell carcinoma. Post nephrectomy is on Xarelto for pulmonary embolism. RME / HPI RME / HPI narrative: 02/01/25 14:38 80-year-old male with cancer presents to the emergency department for complaint of generalized weakness persistent and worsening over the last 3 weeks Related Data Home Medications ?Medication ?Instructions ?Recorded ?Confirmed axitinib 1 mg tablet (Inlyta) 1 mg PO DAILY 11/26/22 1 losartan 100 mg tablet 100 mg PO DAILY 11/26/22 pembrolizumab 50 mg intravenous See Rx Instructions .R oute .COMPLEX 11/26/22 11/26/22 solution rivaroxaban 20 mg tablet (Xarelto) 20 mg PO DAILY 11/0807/01/24 travoprost 0.004 % eye drops 1 drp ophthalmic (eye) HS 11/26/22 07/01/24 (Travatan Z) fluoxetine 10 mg capsule 10 mg PO DAILY 07/01/2406/10 pantoprazole 40 mg tablet,delayed 40 mg PO DAILY 07/0107/01/24 release timolol 0.5 % eye drops (Betimol) 1 drp ophthalmic (ey e) BID 07/01/24 07/01/24 Previous Rx's ?Medication ?Instructions ?Recorded mirtazapine 15 mg tablet 15 mg PO QDAY #30 tabs 07/01 levofloxacin 750 mg tablet 750 mg PO Q24H 7 days #7 ta bs 02/01/25 Allergies Allergy/AdvReac Type Severity Reaction Status Date / Time hornet venom Allergy Severe Swelling Verified 02/01/25 14:44 of Lip/Tongue/Throat Review of Systems Review of Systems Narrative Review of Systems: GEN: No fever, no chills, no weight loss EYES: No discharge, no visual changes, no pain HEENT: No ear pain, no congestion, no sore throat PULM: No shortness of breath, no cough, no congestion CV: No chest pain, no dyspnea on exertion, no palpitations GI: No nausea, no vomiting, no diarrhea, no pain, no constipation : No frequency, no urgency, no dysuria MUSC/SKEL: No joint pain, no back pain SKIN: No rash PSYCH: No hallucinations, no depression HEME/LYMPH: No easy bleeding or bruising tendencies NEURO: + weakness, no headache Past Medical History Past Medical History NEUROLOGIC: Positive Neurological Disorders and Peripheral Neuropathy; Negative Seizures CARDIAC: Positive Cardiac Disorders and Hypertension; Negative Hypercholesterolemia or Congestive Heart Failure RESPIRATORY: Positive Sleep Apnea; Negative Chronic Obstructive Pulmonary Disease (COPD) GASTROINTESTINAL: Negative Gastrointestinal Disorders GENITOURINARY: Positive Genitourinary Disorders, Renal Disease and Prostate Cancer; Negative Kidney Stones or Dialysis MUSCULOSKELETAL: Positive Musculoskeletal Disorders and Arthritis ENT: Positive Cataracts and Glaucoma ENDOCRINE: Negative Endocrine Disorders, Diabetes Mellitus Type 1 or Diabetes Mellitus Type 2 HEMATOLOGIC: Positive Clotting Problems (left PE- none now.) PSYCHO/SOCIAL: Negative Anxiety OTHER HISTORY: Positive Radiation Therapy (one time in 2014), Chicken Pox, Measles, Mumps, Cancer (renal cell carcinoma; nerve underneath the lumbar spine- cut bone-ok now.), Lung Cancer (none now) and Prostate Cancer; Negative Falls, Blood Transfusions, Anesthesia Reactions or Chemotherapy Surgical History SURGICAL: Positive Eye Surgery (right laser sx- long time ago), Abdominal Surgery (splenectomy, partial pancreas removed) and Nephrectomy (right) Social History SMOKING STATUS: Never smoker SECOND HAND EXPOSURE: No ED Exam Narrative Physical exam: [General: Obese not in anyacute distress Head normocephalic HEENT: Within acceptable limits Neck is supple nontender Chest equal chest rise nontender to palpation Respiratory: Clear to auscultation no wheezes crackles or rubs CV: Rate rhythm is regular no murmurs rubs or clicks Abdomen is distended secondary to body habitus soft nontender no masses positive bowel sounds all 4 quadrants Back: No CVA tenderness no spinous process tenderness from cervical spine thoracic and lumbar spine Skin: Intact no petechiae rash induration ulceration or crepitus Extremities: Moving all extremity against resistance cap refill less than 2 seconds neurosensory intact. No lower extremity edema. Neuro: Awake alert oriented x3 Glascow coma 15 no focal deficits] Course Course Course Narrative: Patient has no acute finding in his laboratory results that indicates a serious infection however there is an interpretation of a mild pneumonia this may or may not explain the patient's generalized weakness and mild shortness of breath with exertion. Patient was started on antibiotics and is expected to follow-up with his primary care doctor as discussed. Quality Measures none Orders Category Date Time Status Bedside COVID-19 Antigen Test NOW Care 02/01/25 15:01 Active Bedside Influenza A&B Antigen Test NOW Care 02/01/25 15:01 Completed EKG (ED ONLY) *Do not use* NOW Care 02/01/25 15:02 Completed EKG (ED Only) Stat Exams 02/01/25 15:01 Draft XR chest 2V Stat Exams 02/01/25 15:01 Completed Blood Culture (Lab) Stat Lab 02/01/25 15:12 Received CBC Stat Lab 02/01/25 15:12 Completed Comprehensive Metabolic Panel Stat Lab 02/01/25 15:12 Completed Lactate (Lactic Acid) Stat Lab 02/01/25 15:12 Completed PT [Prothrombin Time with INR] Stat Lab 02/01/25 15:12 Completed PTT [Partial Thromboplastin Time] Stat Lab 02/01/25 15:12 Completed Procalcitonin Stat Lab 02/01/25 15:12 Completed Thyroid Stimulating Hormone Stat Lab 02/01/25 15:12 Completed Troponin I Stat Lab 02/01/25 15:12 Completed Urinalysis Stat Lab 02/01/25 16:30 Completed Urine Culture Stat Lab 02/01/25 16:30 Received Vital Signs Vital signs: Vital Signs Temperature 99.0 F 02/01/25 14:53 Pulse Rate 77 02/01/25 14:53 Respiratory Rate 20 02/01/25 14:53 Blood Pressure 107/71 02/01/25 14:53 Pulse Oximetry (%) 95 02/01/25 14:53 Oxygen Delivery Method Room Air 02/01/25 14:53 Discharge Plan Plan Patient Disposition: HOME (Self Care) Patient condition on transfer: Stable Prescriptions/Referrals Prescriptions/Med Rec: New levofloxacin 750 mg tablet 750 mg PO Q24H 7 Days Qty: 7 0RF No Action fluoxetine 10 mg capsule 10 mg PO DAILY Patient Comments: TAKE 1 CAPSULE BY MOUTH EVERY DAY pantoprazole 40 mg tablet,delayed release (DR/EC) 40 mg PO DAILY Patient Comments: TAKE 1 TABLET BY MOUTH EVERY DAY Betimol 0.5 % drops 1 drp OPHTHALMIC (EYE) BID Patient Comments: INSTILL 1 DROP IN BOTH EYES TWICE DAILY Rx Instructions: 1 drop each eye mirtazapine 15 mg tablet 15 mg PO QDAY Qty: 30 0RF travoprost [Travatan Z] 0.004 % drops 1 drp OPHTHALMIC (EYE) HS Patient Comments: 1 drop Both Eyes every evening Rx Instructions: 1 drop each eye losartan 100 mg tablet 100 mg PO DAILY Patient Comments: TAKE 1 TABLET BY MOUTH EVERY DAY Xarelto 20 mg tablet 20 mg PO DAILY Patient Comments: TAKE 1 TABLET BY MOUTH EVERY EVERY EVENING AFTER USING 15MG FOR 21 DAYS Inlyta 1 mg tablet 1 mg PO DAILY Patient Comments: take 1 tab by mouth once a day as directed pembrolizumab 50 mg Recon Soln See Rx Instructions .ROUTE .COMPLEX Rx Instructions: 100 mg intravenously q3week [facility]Paty PA-C [Primary Care Provider] - In 1 week Problem List Clinical Impression: Pneumonia, Weakness Patient/Caregiver Discharge Instructions Education Materials: ED Pneumonia (Adult) Additional Instructions: Rest take plenty of medicines and follow-up with your primary care doctor there is worsening symptoms return the emergency room medially for further evaluation. Print Language: Hungarian Stand Alone Forms: Sandra Award Info., Patient Portal Info Letter, Work/School Release PA/ASSOCIATE ACCOUNT DIRECTOR Supervising Physician PA/ASSOCIATE ACCOUNT DIRECTOR Supervising Physician: James Martinez ENP [facility] Clinical Information Provided by patient Medical Records Reviewed [facility] Meds/Rx Considered, not Ordered None Labs/Rad/Tests considered, not Ordered None Chronic Illness/Social Conditions Add or document further as needed: PE on Xarelto renal cell carcinoma hypertension EKG EKG Interpretation narrative: EKG performed at 1513 shows a ventricular rate of 68 WV interval of 236 QRS of 93 QTc of 400 the sinus rhythm first-degree block. Lab Interpretation Labs: interpreted by or Lab(s) interpretation(s): CBC shows WBCs of 10.7 no anemia thrombocytopenia Coags show PT of 14.6 INR of 1.4 PTT of 35.9 Chemistries show no significant electrolyte imbalances other glucose of 128 BUN of 14 creatinine of 1.6. Troponin is negative Pro-Theo is 0.11 Lactic acid is 1.4. Imaging Imaging interpretation: interpreted by me Provider imaging interpretation(s): Chest x-ray inter as read by radiology shows the patient has a mild left base pneumonia.
[2025-02-01 16:36] LABS: Collection Type, Urine Clean Catch
[2025-02-01 16:51] LABS: Bacteria,Urine Rare; Bilirubin,Urine 1+ (Negative); Blood,Urine Negative (Negative); Clarity,Urine Clear (Clear/Hazy); Color,Urine Yellow (Lt Yel-Yel); Glucose, Urine Negative (Negative); Ketones,Urine Trace (Negative); Leukocyte Esterase,Urine Negative (Negative); Nitrite,Urine Negative (Negative); PH,Urine 5.5 (5.0-7.0); Protein,Urine 1+ (Neg - Trace); RBC,Urine 2 /hpf (0-3); Specific Gravity,Urine 1.035 (1.001-1.035); Squamous Epithelial Cell,Urine < 1 /hpf (0-5); WBC,Urine 2 /hpf (0-5)
[2025-02-01 17:20] LABS: Thyroid Stimulating Hormone 2.27 uIU/mL (0.55-4.78)
[2025-02-01] MEDS: LEVOFLOXACIN 250 MG TABLET 500 MG PO (18:25)
== END 2025-02-01 18:47 | disposition home or self-care (01) ==
PROVIDERS: Nurse Practitioner Primary Care; Emergency Provider Family Medicine; PCP Nurse Practitioner Family
DX: J18.9 Pneumonia, unspecified organism (principal); I44.0 Atrioventricular block, first degree; I10 Essential (primary) hypertension
CPT/HCPCS: 36415; 71046; 80053; 81001; 83605; 84145; 84443; 84484; 85025; 85610; 85730; 87040; 87086; 87400; 87811; 93005; 99283; A9270

== ENCOUNTER 2025-02-03 11:14 | Emergency (ER) | payer MEDICARE, MEDICAID, SELFPAY ==
[2025-02-03] VITALS (7 sets, daily range): BP systolic 117–163; BP diastolic 79–94; PULSE 63–84; RESP 15–19; TEMP 36.6–37; O2SAT 90–99; BMI 34.4
--- NOTE | 2025-02-03 11:37 | PD.EDADULT ---
ED General RME/HPI General Chief complaint: Weakness Stated complaint: NEAR SYNCOPE Time Seen by Provider: 02/03/25 11:32 Arrival date/time: 02/03/25 11:14 RME / HPI RME / HPI narrative: Alert and oriented, very pleasant 80-year-old male, presents to the ED via EMS with complaint of near syncopal episode and generalized weakness. This occurred as he was walking to his doctor's appointment. He became very lightheaded but denies room spinning sensation. He has felt generalized weakness and fatigue ongoing since early January. He attributes some of his symptoms to recently going up on a dose of Ozempic. The dose was changed in the latter part of December and he began having symptoms as early as January 13. He has not discussed these side effects with his primary care physician. Also, He was also recently diagnosed with pneumonia 2 days ago. He had an appointment at his doctor's office and on his way into the office he felt lightheaded and very weak. Initial blood pressure was 85/55. He was brought in by EMS for further workup and evaluation.He denies fever or chills, upper respiratory complaints but has had nausea and vomiting. Related Data Home Medications ?Medication ?Instructions ?Recorded ?Confirmed axitinib 1 mg tablet (Inlyta) 1 mg PO DAILY 11/26/22 02/03/25 losartan 100 mg tablet 100 mg PO DAILY 11/26/22 02/03/25 pembrolizumab 50 mg intravenous See Rx Instructions .Route .COMPLEX 11/26/22 11/26/22 solution rivaroxaban 20 mg tablet (Xarelto) 20 mg PO DAILY 11/26/22 02/03/25 travoprost 0.004 % eye drops 1 drp ophthalmic (eye) HS 11/26/22 07/01/24 (Travatan Z) fluoxetine 10 mg capsule 10 mg PO DAILY 07/01/24 02/03/25 pantoprazole 40 mg tablet,delayed 40 mg PO DAILY 07/01/24 07/01/24 release timolol 0.5 % eye drops (Betimol) 1 drp ophthalmic (eye) BID 07/01/24 07/01/24 Previous Rx's ?Medication ?Instructions ?Recorded mirtazapine 15 mg tablet 15 mg PO QDAY #30 tabs 07/01/24 levofloxacin 750 mg tablet 750 mg PO Q24H 7 days #7 tabs 05/26/25 Allergies Allergy/AdvReac Type Severity Reaction Status Date / Time hornet venom Allergy Severe Swelling Verified 02/01/25 14:44 of Lip/Tongue/Throat Review of Systems Review of Systems Systems Reviewed: All systems reviewed, normal except as documented Past Medical History Past Medical History NEUROLOGIC: Positive Neurological Disorders and Peripheral Neuropathy; Negative Seizures CARDIAC: Positive Cardiac Disorders and Hypertension; Negative Hypercholesterolemia or Congestive Heart Failure RESPIRATORY: Positive Sleep Apnea; Negative Chronic Obstructive Pulmonary Disease (COPD) GASTROINTESTINAL: Negative Gastrointestinal Disorders GENITOURINARY: Positive Genitourinary Disorders, Renal Disease and Prostate Cancer; Negative Kidney Stones or Dialysis MUSCULOSKELETAL: Positive Musculoskeletal Disorders and Arthritis ENT: Positive Cataracts and Glaucoma ENDOCRINE: Negative Endocrine Disorders, Diabetes Mellitus Type 1 or Diabetes Mellitus Type 2 HEMATOLOGIC: Positive Clotting Problems PSYCHO/SOCIAL: Negative Anxiety OTHER HISTORY: Positive Radiation Therapy, Chicken Pox, Measles, Mumps, Cancer, Lung Cancer and Prostate Cancer; Negative Falls, Blood Transfusions, Anesthesia Reactions or Chemotherapy Surgical History SURGICAL: Positive Eye Surgery, Abdominal Surgery and Nephrectomy Social History SMOKING STATUS: Former smoker SECOND HAND EXPOSURE: No ED Exam Narrative Physical exam: Alert and oriented, very pleasant 80-year-old male, presents to the ED via EMS with complaint of near syncopal episode. This occured as he was walking to his doctor's appointment. He became very lightheaded but denies room spinning sensation. He has felt generalized weakness and fatigue ongoing since early January. He attributes some of his symptoms to recently going up on a dose of Ozempic. The dose was changed in the latter part of December and he began having symptoms as early as January 13. He has not discussed these side effects with his primary care physician. He denies fever or chills, upper respiratory complaints but has had nausea and vomiting. Alert and oriented, very pleasant 80-year-old male, nontoxic-appearing, no acute distress. Lungs are clear, cardiovascular regular rate and rhythm without murmurs. Abdomen is soft and nontender without rebound or guarding. He moves all extremities well. Course Course Course Narrative: Alert and oriented, very pleasant 80-year-old male, presents to the ED via EMS with complaint of near syncopal episode and generalized weakness. This occurred as he was walking to his doctor's appointment. He became very lightheaded but denies room spinning sensation. He has felt generalized weakness and fatigue ongoing since early January. He attributes some of his symptoms to recently going up on a dose of Ozempic. The dose was changed in the latter part of December and he began having symptoms as early as January 13. He has not discussed these side effects with his primary care physician. Also, He was also recently diagnosed with pneumonia 2 days ago. He had an appointment at his doctor's office and on his way into the office he felt lightheaded and very weak. Initial blood pressure was 85/55. He was brought in by EMS for further workup and evaluation.He denies fever or chills, upper respiratory complaints but has had nausea and vomiting. Alert and oriented, very pleasant 80-year-old male, presents to the ED via EMS with complaint of near syncopal episode. This occured as he was walking to his doctor's appointment. He became very lightheaded but denies room spinning sensation. He has felt generalized weakness and fatigue ongoing since early January. He attributes some of his symptoms to recently going up on a dose of Ozempic. The dose was changed in the latter part of December and he began having symptoms as early as January 13. He has not discussed these side effects with his primary care physician. He denies fever or chills, upper respiratory complaints but has had nausea and vomiting. Alert and oriented, very pleasant 80-year-old male, nontoxic-appearing, no acute distress. Lungs are clear, cardiovascular regular rate and rhythm without murmurs. Abdomen is soft and nontender without rebound or guarding. He moves all extremities well. Initial vitals reveal a blood pressure was 117/79, pulse 73, respirations 17 and nonlabored, temp 98.1, O2 sat of 97% on room air. Repeat vitals reveals a blood pressure of 140/94, pulse 74, respirations 18 and nonlabored, temp 97.9, O2 sat of 98% on room air. Labs reveal a white count of 11.9, H&H 13.8/37.4 with normal platelet count of 318. Coags are elevated with PT 17.7, INR 1.7, PTT 37.9. Chemistry panel reveals a creatinine of 1.7, EGFR of 40 with normal LFTs. Urinalysis is normal. COVID and influenza A/B swabs are all negative. XR chest: FINDINGS: Normal heart size. Lungs are clear. Osseous structures are intact. IMPRESSION: No active disease CT Brain: Findings: No significant ventricular enlargement. Mild left cerebral hemisphere atrophy. Intra-axial or extra-axial hemorrhage density is not seen. No mass effect or midline shift. Basal cisterns are not remarkable. Fourth ventricle is midline. Cranial vault intact. Impression: Negative for acute hemorrhage, mass effect or midline shift. Advise clinical correlation follow-up accordingly. Quality Measures Current suspected stage: ruled out Reason for ruling out sepsis: Normal temp, no tachycardia, minimal elevation of white count, norm lactic Possible source: pulmonary Blood cultures ordered: yes Antibiotic ordered: No Pertinent labs: 02/03/25 12:46 Lactic Acid 1.8 mMol/L (0.4-2.0) sepsis Orders Category Date Time Status EKG (ED ONLY) *Do not use* NOW Care 02/03/25 11:39 Completed Orthostatic Vitals NOW Care 02/03/25 11:42 Active Orthostatic Vitals NOW Care 02/03/25 15:[address] head/brain wo con Stat Exams 02/03/25 11:42 Completed EKG (ED Only) Stat Exams 02/03/25 11:39 Draft XR chest 1V portable Stat Exams 02/03/25 11:39 Completed B-Type Natriuretic Peptide Stat Lab 02/03/25 12:46 Completed Blood Culture (Lab) Stat Lab 02/03/25 12:46 Received CBC Stat Lab 02/03/25 12:46 Completed Comprehensive Metabolic Panel Stat Lab 02/03/25 12:46 Completed Lactic Acid [Lactate (Lactic Acid)] Stat Lab 02/03/25 12:46 Completed Magnesium Stat Lab 02/03/25 12:46 Completed Partial Thromboplastin Time Stat Lab 02/03/25 12:46 Completed Prothrombin Time with INR Stat Lab 02/03/25 12:46 Completed Troponin I Stat Lab 02/03/25 12:46 Completed Urinalysis Stat Lab 02/03/25 13:20 Completed Urine Culture Stat Lab 02/03/25 13:20 Received Sodium Chloride 0.9% 500 ml [Ns] 500 ml Med 02/03/25 11:43 Discontinued IV 999 mls/hr Sodium Chloride 0.9% 500 ml [Ns] 500 ml Med 02/03/25 15:29 Discontinued IV 999 mls/hr Vital Signs Vital signs: Vital Signs Temperature 98.1 F 02/03/25 11:16 Pulse Rate 73 02/03/25 11:16 Respiratory Rate 17 02/03/25 11:16 Blood Pressure 117/79 02/03/25 11:16 Pulse Oximetry (%) 97 02/03/25 11:16 Oxygen Delivery Method Room Air 02/03/25 11:16 Discharge Plan Plan Patient Disposition: HOME (Self Care) Discharge Disposition comment: Stable and Improved Prescriptions/Referrals Prescriptions/Med Rec: No Action fluoxetine 10 mg capsule 10 mg PO DAILY Patient Comments: TAKE 1 CAPSULE BY MOUTH EVERY DAY pantoprazole 40 mg tablet,delayed release (DR/EC) 40 mg PO DAILY Patient Comments: TAKE 1 TABLET BY MOUTH EVERY DAY Betimol 0.5 % drops 1 drp OPHTHALMIC (EYE) BID Patient Comments: INSTILL 1 DROP IN BOTH EYES TWICE DAILY Rx Instructions: 1 drop each eye mirtazapine 15 mg tablet 15 mg PO QDAY Qty: 30 0RF travoprost [Travatan Z] 0.004 % drops 1 drp OPHTHALMIC (EYE) HS Patient Comments: 1 drop Both Eyes every evening Rx Instructions: 1 drop each eye losartan 100 mg tablet 100 mg PO DAILY Patient Comments: TAKE 1 TABLET BY MOUTH EVERY DAY Xarelto 20 mg tablet 20 mg PO DAILY Patient Comments: TAKE 1 TABLET BY MOUTH EVERY EVERY EVENING AFTER USING 15MG FOR 21 DAYS Inlyta 1 mg tablet 1 mg PO DAILY Patient Comments: take 1 tab by mouth once a day as directed pembrolizumab 50 mg Recon Soln See Rx Instructions .ROUTE .COMPLEX Rx Instructions: 100 mg intravenously q3week levofloxacin 750 mg tablet 750 mg PO Q24H 7 Days Qty: 7 0RF Referrals: Galina Warren PA-C [Primary Care Provider] - In 1 week Problem List Clinical Impression: Generalized weakness, Postural dizziness with near syncope Patient/Caregiver Discharge Instructions Education Materials: Causes of Syncope, ED Dizziness, Uncertain Cause, ED Weakness (Uncertain Cause) Additional Instructions: Follow-up with your primary care physician in 24 to 48 hours. Return to the ED for any new or worsening symptoms. Print Language: Kyrgyz Stand Alone Forms: Sandra Award Info., Patient Portal Info Letter PA/COMPUTER ENGINEERING PROFESSOR Supervising Physician PA/COMPUTER ENGINEERING PROFESSOR Supervising Physician: Dr. Sandoval MDM Medication Administration(s) Medication Administration History Discontinued Medications Sodium Chloride (Ns) 500 mls @ 999 mls/hr IV .Q31M ONE Stop: 02/03/25 12:13 Last Infusion: 02/03/25 12:50 Dose: Infused Documented By: Admin: 02/03/25 12:19 Dose: 999 mls/hr Documented By: GEO Sodium Chloride (Ns) 500 mls @ 999 mls/hr IV .Q31M ONE Stop: 02/03/25 15:59 Last Infusion: 02/03/25 16:32 Dose: Infused Documented By: Admin: 02/03/25 16:01 Dose: 999 mls/hr Documented By: GEO
--- NOTE | 2025-02-03 11:39 | EKG_ITS ---
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
--- NOTE | 2025-02-03 11:39 | XR_ITS ---
Examination: AP chest single view Technique one AP portable upright chest single view Date and time: February 03, 2025 1154 hours Comparison February 01, 2025 INDICATIONS: Weakness today. FINDINGS: Normal heart size. Lungs are clear. Osseous structures are intact IMPRESSION: No active disease
--- NOTE | 2025-02-03 11:42 | XR_ITS ---
Examination: CT brain head without contrast. 2-D sagittal coronal reconstructions Date and time of exam:January 26, 2025 1209 hours INDICATIONS: Syncopal episode today with dizziness CTDI: vol (mGy):58 DLP: (mGycm):1200 Technique: Multiple CT axial sections of the brain have been obtained, 5 mm slice thickness. Contrast has not been administered. 2-D sagittal, coronal reconstructions have been obtained Low dose protocols were performed. One or more of the following dose reduction techniques were used; automated exposure control, adjustment of the mA and/or KV according to patient size, use of iterative reconstruction technique. Findings: No significant ventricular enlargement. Mild left cerebral hemisphere atrophy Intra-axial or extra-axial hemorrhage density is not seen. No mass effect or midline shift Basal cisterns are not remarkable. Fourth ventricle is midline. Cranial vault intact. Impression: Negative for acute hemorrhage, mass effect or midline shift Advise clinical correlation follow-up accordingly
[2025-02-03] MEDS: SODIUM CHLORIDE 0.9% 500 ML 500 ML 999 ML IV ×2 (12:19→16:01)
[2025-02-03 12:51] LABS: Lactate (Lactic Acid) 1.8 mMol/L (0.4-2.0)
[2025-02-03 12:53] LABS: Basophils # (Auto) 0.1 Thou/mm3 (0.0-0.2); Basophils % (Auto) 1 % (0-2.5); Eosinophils % (Auto) 0 % (0-10); Hematocrit 37.4 % (41.0-53.0); Hemoglobin 13.8 g/dL (13.5-16.0); Immature Granulocytes % (Auto) 0 % (0-0); Immature Granulocytes Auto 0.04 Thou/mm3 (0.00-0.00); Lymphocytes # (Auto) 4.3 Thou/mm3 (1.0-4.8); Lymphocytes % (Auto) 36 % (10-50); Mean Corpuscular HGB Conc 36.9 g/dl (31.0-37.0); Mean Corpuscular Hemoglobin 28.5 pg (25.0-35.0); Mean Corpuscular Volume 77 fL (80-100); Monocytes # (Auto) 1.5 Thou/mm3 (0.0-0.8); Monocytes % (Auto) 12 % (0-12); Neutrophils % (Auto) 51 % (37-80); Nucleated Red Blood Cell % 0 /100 WBC (0); Platelet Count 318 Thou/mm3 (140-440); Red Blood Count 4.84 Miln/mm3 (4.50-5.90); White Blood Count 11.9 Thou/mm3 (3.8-10.6)
[2025-02-03 13:09] LABS: INR 1.7 (0.9-1.3); Partial Thromboplastin Time 37.9 Seconds (22.0-36.0); Prothrombin Time 17.7 Seconds (9.0-12.2)
[2025-02-03 13:17] LABS: Alanine Aminotransferase 10 U/L (10-49); Albumin, Serum 4.2 gm/dL (3.4-4.8); Albumin/Globulin Ratio 2.2 (1.2-2.2); Alkaline Phosphatase 72 U/L (46-116); Anion Gap 12 (7-16); Aspartate Amino Transferase 19 U/L (0-34); BUN/Creatinine Ratio 9 Ratio (12-20); Bilirubin,Total 0.9 mg/dL (0.3-1.2); Blood Urea Nitrogen 15 mg/dL (9-23); Calcium 9.4 mg/dL (8.3-10.6); Calcium (Corrected) 9.4 mg/dL (8.5-10.1); Carbon Dioxide 25.1 mMol/L (20.0-31.0); Chloride 102 mMol/L (98-107); Creatinine (Component) 1.7 mg/dL (0.6-1.3); Estimated Creatinine Clearance 46.7 mL/min (>60); Globulin 1.9 gm/dL (2.3-3.5); Glucose 94 mg/dL (74-106); Magnesium 1.7 mg/dL (1.6-2.6); Osmolality,Calculated 278 (275-295); Potassium 4.2 mMol/L (3.4-5.1); Sodium 139 mMol/L (136-145); Total Protein 6.1 gm/dL (5.7-8.2); Troponin I < 0.002 ng/mL (0.0-0.045); eGFR 40 See Note
[2025-02-03 13:19] LABS: B-Type Natriuretic Peptide 31 pg/mL (0-100)
[2025-02-03 13:35] LABS: Collection Type, Urine Clean Catch; Squamous Epithelial Cell,Urine 0 /hpf (0-5)
[2025-02-03 13:49] LABS: Bacteria,Urine Rare; Bilirubin,Urine Negative (Negative); Blood,Urine Negative (Negative); Clarity,Urine Clear (Clear/Hazy); Color,Urine Yellow (Lt Yel-Yel); Glucose, Urine Negative (Negative); Hyaline Casts,Urine < 1 /hpf (0-1); Ketones,Urine Negative (Negative); Leukocyte Esterase,Urine Negative (Negative); Nitrite,Urine Negative (Negative); Protein,Urine Trace (Neg - Trace); RBC,Urine 1 /hpf (0-3); Specific Gravity,Urine 1.017 (1.001-1.035); Urobilinogen,Urine Negative mg/dL (0.0-1.0); WBC,Urine 1 /hpf (0-5)
== END 2025-02-03 17:49 | disposition home or self-care (01) ==
PROVIDERS: Physician Assistant; Emergency Provider Emergency Medicine; PCP Physician Assistant
DX: R55 Syncope and collapse (principal); R53.1 Weakness; R42 Dizziness and giddiness; I44.0 Atrioventricular block, first degree; I10 Essential (primary) hypertension; Z87.891 Personal history of nicotine dependence
CPT/HCPCS: 36415; 70450; 71045; 80053; 81001; 83605; 83735; 83880; 84484; 85025; 85610; 85730; 87040; 87086; 93005; 96360; 96361; 99284; J7040

== ENCOUNTER → 2025-02-11 | Outpatient (CLI) | payer OTHER, MEDICAID, SELFPAY ==
--- NOTE | 2025-02-11 13:30 | XR_ITS ---
Examination: Duplex scan of the lower extremity, unilateral right complete Date and time of exam: February 11, 2025 1404 hours INDICATIONS: Right knee pain beginning 2 years ago Technique: Duplex scan of the extremity veins using B-mode/grayscale imaging and Doppler spectral analysis and color flow Attention is directed to internal echogenicity, compression and augmentation involving these veins, color flow assessment, spectral analysis Findings: Major deep venous structures in the extremity demonstrate normal course and caliber. There is no evidence of deep vein thrombosis. Normal color flow and spectral analysis Impression: Negative for DVT..
--- NOTE | 2025-02-11 13:30 | XR_ITS ---
Examination: Ultrasound abdominal aorta TECHNIQUE: Grayscale sonographic images abdominal aorta Date and time: February 11, 2025 1352 hours INDICATIONS: Screening for abdominal aortic aneurysm FINDINGS: Proximal aorta 2.2 cm mid aorta 1.8 cm distal aorta 1.6 cm right iliac 1.4 cm left iliac 1.1 cm IMPRESSION: Negative for abdominal aortic aneurysm
== END | disposition home or self-care (01) ==
PROVIDERS: PCP Nurse Practitioner Family; Referring Provider Nurse Practitioner Family; Visit Provider Nurse Practitioner Family
DX: Z13.6 Encounter for screening for cardiovascular disorders (principal); M25.561 Pain in right knee; Z85.528 Personal history of other malignant neoplasm of kidney; Z13.89 Encounter for screening for other disorder
CPT/HCPCS: 76770; 93971

== ENCOUNTER → 2025-02-15 | Outpatient (CLI) | payer OTHER, MEDICAID, SELFPAY ==
--- NOTE | 2025-02-15 08:45 | XR_ITS ---
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 Imaging was performed on an integrated 16-slice PET/CT scanner, with scanning from the skull base to the mid thigh. Serum blood glucose at the time of the injection was measured 102 mg/dL. CT scanning was performed without oral or intravenous contrast material. FINDINGS: Head and Neck: There is no lyudmila hypermetabolism in the neck. The visualized portions of the brain are normal in appearance on CT. Chest: There is no lyudmila hypermetabolism in the chest. There are no pulmonary nodules. There is atelectasis in the lingular segment Abdomen and Pelvis: There is no lyudmila hypermetabolism in retroperitoneal or pelvic chains. The spleen is normal in size and FDG avidity. Musculoskeletal: Marrow uptake is within normal range. IMPRESSION: No interval metastatic disease No pulmonary nodule is depicted on the current study in the lingular segment or elsewhere in the lungs
== END | disposition home or self-care (01) ==
PROVIDERS: PCP Nurse Practitioner Family; Referring Provider Internal Medicine Hematology & Oncology; Visit Provider Internal Medicine Hematology & Oncology
DX: C64.1 Malignant neoplasm of right kidney, except renal pelvis (principal); D72.828 Other elevated white blood cell count
CPT/HCPCS: 78815; A9552

== ENCOUNTER 2025-03-17 08:05 | Day surgery (SDC) | payer MEDICAID, SELFPAY ==
[2025-03-16 14:24] VITALS: BMI 33.6
[2025-03-17] VITALS (8 sets, daily range): BP systolic 122–166; BP diastolic 69–97; PULSE 56–63; RESP 11–19; TEMP 36.5–36.8; O2SAT 97–100; BMI 31.8
[2025-03-17] MEDS: BENZOCAINE 20% (Hurricaine) SPRAY 1 DOSE TOP (10:53)
[2025-03-17] MEDS: SODIUM CHLORIDE 0.9% 500 ML 500 ML 20 ML IV (10:53)
[2025-03-17] MEDS: MIDAZOLAM INJ 1 MG/ML VIAL 2 ML (ASD USE ONLY) 2 MG IVP (10:54)
[2025-03-17] MEDS: fentaNYL CIT INJ 50 mCg/ML AMP 2ML (ASD USE ONLY) IVP (10:56)
== END 2025-03-17 12:00 | disposition home or self-care (01) ==
PROVIDERS: PCP Nurse Practitioner Family; Referring Provider Specialist; Visit Provider Specialist
PROC: (CPT 43239; principal; 2025-03-17 10:00)
DX: K29.71 Gastritis, unspecified, with bleeding (principal); C64.1 Malignant neoplasm of right kidney, except renal pelvis; I10 Essential (primary) hypertension; Z86.73 Personal history of transient ischemic attack (TIA), and cerebral infarction without residual deficits; Z90.5 Acquired absence of kidney; Z90.81 Acquired absence of spleen; Z90.411 Acquired partial absence of pancreas; Z90.79 Acquired absence of other genital organ(s); Z79.899 Other long term (current) drug therapy; Z79.01 Long term (current) use of anticoagulants
CPT/HCPCS: 43235; J1200; J2250; J3010; J7999; A9270

== ENCOUNTER 2025-04-05 12:48 | Outpatient (RCR) | payer MEDICAID, SELFPAY ==
[2025-04-01 13:27] LABS: Basophils # (Auto) 0.1 Thou/mm3 (0.0-0.2); Basophils % (Auto) 1 % (0-2.5); Eosinophils # (Auto) 0.2 Thou/mm3 (0.0-0.5); Eosinophils % (Auto) 2 % (0-10); Hematocrit 35.0 % (41.0-53.0); Hemoglobin 12.1 g/dL (13.5-16.0); Immature Granulocytes Auto 0.02 Thou/mm3 (0.00-0.00); Lymphocytes # (Auto) 4.6 Thou/mm3 (1.0-4.8); Lymphocytes % (Auto) 46 % (10-50); Mean Corpuscular HGB Conc 34.6 g/dl (31.0-37.0); Mean Corpuscular Hemoglobin 27.1 pg (25.0-35.0); Mean Corpuscular Volume 79 fL (80-100); Monocytes # (Auto) 0.9 Thou/mm3 (0.0-0.8); Monocytes % (Auto) 9 % (0-12); Neutrophils # (Auto) 4.2 Thou/mm3 (1.8-7.7); Neutrophils % (Auto) 42 % (37-80); Nucleated Red Blood Cell # 0.00 Thou/mm3 (0.00-0.00); Nucleated Red Blood Cell % 0 /100 WBC (0); Platelet Count 404 Thou/mm3 (140-440); RDW Standard Deviation 41.2 fL (35.1-43.9); Red Blood Count 4.46 Miln/mm3 (4.50-5.90); White Blood Count 10.1 Thou/mm3 (3.8-10.6)
[2025-04-01 14:05] LABS: Alanine Aminotransferase 9 U/L (10-49); Albumin, Serum 4.6 gm/dL (3.4-4.8); Albumin/Globulin Ratio 1.7 (1.2-2.2); Alkaline Phosphatase 65 U/L (46-116); Anion Gap 12 (7-16); Aspartate Amino Transferase 21 U/L (0-34); BUN/Creatinine Ratio 8 Ratio (12-20); Bilirubin,Total 0.5 mg/dL (0.3-1.2); Blood Urea Nitrogen 10 mg/dL (9-23); Calcium 9.8 mg/dL (8.3-10.6); Calcium (Corrected) 9.8 mg/dL (8.5-10.1); Carbon Dioxide 27.9 mMol/L (20.0-31.0); Chloride 101 mMol/L (98-107); Creatinine (Component) 1.2 mg/dL (0.6-1.3); Globulin 2.7 gm/dL (2.3-3.5); Glucose 81 mg/dL (74-106); Osmolality,Calculated 279 (275-295); Potassium 3.4 mMol/L (3.4-5.1); Sodium 141 mMol/L (136-145); Total Protein 7.3 gm/dL (5.7-8.2); eGFR > 60 See Note
--- NOTE | 2025-04-05 14:33 | CTCFLWUP_ITS ---
Patient: RENALDO CONWAY : 1945 Page 2 of 2 FOLLOW UP NOTE DATE OF SERVICE: 04/05/2025 NAME: RENALDO CONWAY ACCOUNT: [id number] : 1945 AGE: 80 INTERVAL HISTORY: Patient is 80-year-old male who was recently admitted to the hospital for dizziness Patient it was noted to have altered mentation and was taken to [facility] with concern for stroke. Patient also was recently diagnosed with GI bleeding. Patient was on Xarelto for his history of pulmonary embolism. Patient was told to stop Xarelto after he was found to have melanic stools. Later workup for EGD was negative for any bleeding vessel. 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 CTP showed large core. Initial NIH 26. MRI head was done which showed showed left MCA infarct s/p DSA with balloon angioplasty of left cervical carotid x 3 and MET of the left M1 occlusion CTh 6 18 involving the left MCA territory infarct involving the left insula without hemorrhagic transformation local mass effect without midline shift or herniation patient's left ICA was found to be occluded with no flow patient was started on Xarelto and statin. Patient's was advised to avoid blood pressure below 110 in setting of left ICA occlusion and intracranial arteriosclerosis and occlusion and losartan was stopped patient was advised to continue Norvasc 5 mg daily patient have report previous history of pulmonary embolism was on anticoagulation and patient's Xarelto was resumed after the stroke patient's workup for GI bleed was negative and patient was started on oral iron. Patient is now here for follow-up Patient is taking Inlyta 1 mg tablet for his cancer. 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 S/p pembrolizumab and axitinib (05/25/2021?08/08/2020). Patient requested a break from pembrolizumab Currently on axitinib 1 mg p.o. daily. Hypertension. Significant worsening of hypertension with pazopanib in the past. 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 DIAGNOSIS: Malignant neoplasm of right kidney, except renal pelvis [ICD10] C64.1 DATE OF DIAGNOSIS: 07/29/2012 STAGE/TNM: Stage IV right kidney renal cell carcinoma, clear?cell type with pulmonary mets as well as retroperitoneal mets. TREATMENT HISTORY: Care?Plan Start?Date Cycle Day Intent KEYTRUDA?200 05/25/2021 1 21 Palliative HISTORY OF PRESENT ILLNESS: Renaldo Conway is a 80-year-old ENG speaking male with history of hypertension has the following oncology history. 07/29/2012: Mr. Conway had a right nephrectomy. 11/18/2012: Patient had robotic prostatectomy for prostate cancer? 03/24/2016: Patient had lumbar depression with tumor resection for metastatic renal cell carcinoma April 2016: Patient was started on pazopanib. Unfortunately Mr. Conway was not able to tolerate pazopanib which was causing significant hypotension. Eventually pazopanib discontinued in March 2017. 11/20/2018: Mr. 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 August 2020: Mr. Conway was diagnosed with pulmonary embolus at [facility]. He was started on Xarelto. 03/31/2021: Patient had lumbar spine surgery done at [facility]. Pathology report is not available to me. 04/24/2021: CT scan of the chest with contrast? 05/25/2021: Patient received first cycle of pembrolizumab. Patient also started taking axitinib 1 mg p.o. twice daily on the same day. 09/06/2021: MRI of the lumbar spine without contrast? 10/05/2021: CT scan of the chest abdomen and pelvis with IV contrast? 10/05/2021: CT scan of the lumbar spine without contrast? 03/31/2022: 08/27/2022: CT scan of the chest abdomen and pelvis with IV contrast 12/26/2022: CT scan of the chest abdomen and pelvis with IV contrast 04/23/2023: CT scan of the chest abdomen and pelvis with IV contrast 08/12/2023: PET/CT scan 04/20/2024: CT scan of the chest abdomen and pelvis with IV contrast OTHER MEDICAL HISTORY/CONDITIONS: Hypertension Diabetes FAMILY HISTORY: SOCIAL HISTORY: MEDICATIONS: 1. axitinib - 1 mg 1 tab Daily 2. FLUoxetine - 20 mg 1 Capsule As directed 3. olmesartan - 40 mg 1 tab As directed 4. timolol - 0.25 % As directed 5. Xarelto - 20 mg 1 tab Daily 6. Xarelto - 15 mg 1 tab Daily Medications Last Reconciled by Beth Dietrich MA on 04/05/2025 ALLERGIES: No Known Drug Allergies REVIEW OF SYSTEMS: A complete 14-point review of systems was performed and is negative except as noted in interval history. PHYSICAL EXAMINATION: VITAL SIGNS: PAIN: 0 - No pain ECOG Performance Status: 2 - Symptomatic; ambulatory; capable of self-care; >50% of waking hrs. not in bed EYE: Conjunctivae is white MOUTH: No lesions CHEST: No respiratory distress CARDIAC: Rhythm regular. EXTREMITIES: No cyanosis. Patient is alert oriented x 3 but have a slurry speech and have loss of words. Patient also walks with walker and has stepping gait LABORATORY DATA: I have personally reviewed and interpreted each of the patient?s relevant lab tests, abnormal findings are below: Date 02/03/25 04/01/25 ??WHITE?BLOOD?COUNT?(Thou/mm3) ? 10.1 ??RED?BLOOD?COUNT?(Miln/mm3) ? 4.46?L ??HEMOGLOBIN?(gm/dl) ? 12.1?L ??HEMATOCRIT?(%) ? 35.0?L ??PLATELET?COUNT?(Thou/mm3) ? 404 ??NEUTROPHILS?%,?AUTO?(%) ? 42 ??LYMPH?%,?AUTO?(%) ? 46 ??NEUTROPHILS,?AUTO?(Thou/mm3) ? 4.2 ??GLUCOSE,RANDOM?(mg/dL) 94 81 ??BLOOD?UREA?NITROGEN?(mg/dL) 15 10 ??CREATININE?(mg/dL) 1.70?H 1.20 ??SODIUM?(mmol/L) 139 141 ??POTASSIUM?(mmol/L) 4.2 3.4 ??CHLORIDE?(mmol/L) 102 101 ??CrCl?(CandG)?(ml/min) 46.13 61.97 ??AST/SGOT?(Unit/L) 19 21 ??ALT/SGPT?(Unit/L) 10 9?L ??ALKALINE?PHOSPHATASE?(Unit/L) 72 65 ??BILIRUBIN,?TOTAL?(mg/dL) 0.9 0.5 ??PROTEIN?TOTAL?(gm/dl) 6.1 7.3 ??ALBUMIN,?SERUM?(gm/dl) 4.2 4.6 ??GLOBULIN?(gm/dl) 1.9?L 2.7 ??ALBUMIN/GLOBULIN?RATIO 2.2 1.7 ??CALCIUM,?SERUM?(mg/dL) 9.4 9.8 ??CALCIUM?SERUM?(CORRECTED)?(mg/dL) 9.4 9.8 ??MAGNESIUM?(mg/dL) 1.7 ? ASSESSMENT/PLAN: 1. Metastatic renal cell carcinoma, clear-cell type with worsening pulmonary mets as well as retroperitoneal mets as described above. Patient was treated with pazopanib in the past which needed to be discontinued due to significant hypertension. Mr. Conway is currently on axitinib 1 mg started on 05/25/2021, patient reports previously he was unable to tolerate increased dosage due to increase in hypertension. Patient stopped axitinib and keytruda after he was in remission, Patient restarted axitinib Continues on break from Keytruda, patient requested break from Keytruda, was tolerating it well when he was on. 07/22/2024 CT scan shows new 10 mm nodule in the lung which is new MRI of the abdomen is negative PET CT scan was negative for interval metastatic disease, no pulmonary nodules. Naterra is negative Cont inlyta 2. stroke MCA infarct and ICS ? left side Cont xeralto and statin and follow with cardiology 3. History of PE. Was on Xarelto. Xarelto discontinued recently by Dr. Shawn Campos. Restarted xerato 4) CONERN FOR IRON DEF Will repeat labs Ferriti,iron studies b12 and folate level checked. RTC IN 3 MONTH I ORDERS: Order # Description [id number] CBC with Auto Diff + Comprehensive Metabolic Panel - 12 [id number] Ferritin + Iron Panel + Reticulocyte Count + Vitamin B-12 + Folic Acid; Serum + Assay Of Haptoglobin Quant [id number] Lactate Dehydrogenase (LDH) + Assay Of Haptoglobin Quant [id number] Follow Up 3 Months RETURN TO CLINIC: I reviewed the diagnosis, prognosis, and recommended treatment/procedure options with the patient (and/or their legal front desk representative), including the potential benefits, risks, side effects and alternative therapies. We also discussed the option of no treatment and the possibility of clinical trial participation, if applicable. All questions were addressed, and they demonstrated understanding. They provided informed consent to proceed with the proposed plan of care. BILLING AND COMPLIANCE: I reviewed external records from providers outside my specialty as summarized above. I spent a total of 50 minutes on this patient?s care on the day of their visit excluding time spent related to any billed procedures. This time includes time spent with the patient as well as time spent documenting in the medical record, reviewing patients records and tests, obtaining history, placing orders, communicating with other healthcare professionals, counseling the patient, family or caregiver, and/or care coordination for the diagnoses above. Electronically Signed by: Davide Carrera MD T: 2:31 PM CC: PCP: Maurice(Paty phillips Referring: Steve)Paty This document was completed utilizing speech recognition software. Grammatical errors, random word insertions, pronoun errors, and incomplete sentences are an occasional consequence of this system due to software limitations, ambient noise, and hardware issues. Any formal questions or concerns about the content, text or information contained within the body of this dictation should be directly addressed to the provider for clarification.
== END 2025-04-08 23:59 | disposition home or self-care (01) ==
LOC: SCTC 12:48
PROVIDERS: PCP Nurse Practitioner Family; Referring Provider Nurse Practitioner Family; Visit Provider Internal Medicine Hematology & Oncology
DX: C64.1 Malignant neoplasm of right kidney, except renal pelvis (principal); C78.02 Secondary malignant neoplasm of left lung; C78.01 Secondary malignant neoplasm of right lung; C78.6 Secondary malignant neoplasm of retroperitoneum and peritoneum; I10 Essential (primary) hypertension; Z86.73 Personal history of transient ischemic attack (TIA), and cerebral infarction without residual deficits; Z86.711 Personal history of pulmonary embolism; Z79.01 Long term (current) use of anticoagulants
CPT/HCPCS: 36415; 80053; 85025; 99212; G0463

== ENCOUNTER → 2025-04-26 | Outpatient (CLI) | payer MEDICARE, MEDICAID, SELFPAY ==
[2025-04-26 15:26] LABS: Basophils # (Auto) 0.1 Thou/mm3 (0.0-0.2); Basophils % (Auto) 1 % (0-2.5); Eosinophils # (Auto) 0.0 Thou/mm3 (0.0-0.5); Eosinophils % (Auto) 0 % (0-10); Hematocrit 41.6 % (41.0-53.0); Hemoglobin 14.3 g/dL (13.5-16.0); Immature Granulocytes Auto 0.01 Thou/mm3 (0.00-0.00); Immature Reticulocyte Fraction 10.3 % (2.3-13.4); Lymphocytes # (Auto) 4.0 Thou/mm3 (1.0-4.8); Lymphocytes % (Auto) 46 % (10-50); Mean Corpuscular HGB Conc 34.4 g/dl (31.0-37.0); Mean Corpuscular Hemoglobin 26.6 pg (25.0-35.0); Mean Corpuscular Volume 78 fL (80-100); Monocytes # (Auto) 0.6 Thou/mm3 (0.0-0.8); Monocytes % (Auto) 6 % (0-12); Neutrophils # (Auto) 4.1 Thou/mm3 (1.8-7.7); Neutrophils % (Auto) 46 % (37-80); Nucleated Red Blood Cell # 0.00 Thou/mm3 (0.00-0.00); Nucleated Red Blood Cell % 0 /100 WBC (0); Platelet Count 250 Thou/mm3 (140-440); RDW Standard Deviation 41.1 fL (35.1-43.9); Red Blood Count 5.37 Miln/mm3 (4.50-5.90); Reticulocyte % (Auto) 1.3 % (0.5-1.5); Reticulocyte Absolute Auto 72.0 Biln/L (25.0-75.0); Reticulocyte Hgb Content 31.2 pg (28.0-35.0); White Blood Count 8.8 Thou/mm3 (3.8-10.6)
[2025-04-26 15:48] LABS: Ferritin 41 ng/mL (10.5-307.3); Iron 153 mcg/dL (65-175); Percent Iron Saturation 41 % (20-55); Total Iron Binding Capacity 372 mcg/dL (250-425); Unsaturated Iron Binding 219 (225-295)
[2025-04-26 15:51] LABS: Folate 13.09 ng/mL (>5.38); Vitamin B12 664 pg/mL (211-911)
[2025-04-26 15:56] LABS: Alanine Aminotransferase 10 U/L (10-49); Albumin, Serum 4.6 gm/dL (3.4-4.8); Albumin/Globulin Ratio 1.8 (1.2-2.2); Alkaline Phosphatase 70 U/L (46-116); Anion Gap 13 (7-16); Aspartate Amino Transferase 22 U/L (0-34); BUN/Creatinine Ratio 9 Ratio (12-20); Bilirubin,Total 0.7 mg/dL (0.3-1.2); Blood Urea Nitrogen 11 mg/dL (9-23); Calcium 10.6 mg/dL (8.3-10.6); Calcium (Corrected) 10.6 mg/dL (8.5-10.1); Carbon Dioxide 26.2 mMol/L (20.0-31.0); Chloride 101 mMol/L (98-107); Creatinine (Component) 1.2 mg/dL (0.6-1.3); Globulin 2.6 gm/dL (2.3-3.5); Glucose 104 mg/dL (74-106); LDH (Lactate Dehydrogenase) 140 U/L (120-246); Osmolality,Calculated 278 (275-295); Potassium 4.1 mMol/L (3.4-5.1); Sodium 140 mMol/L (136-145); Total Protein 7.2 gm/dL (5.7-8.2); eGFR > 60 See Note
[2025-05-03 07:00] LABS: Haptoglobin* 181 mg/dL (43-212)
== END | disposition home or self-care (01) ==
LOC: SCTO 14:43
PROVIDERS: PCP Nurse Practitioner Family; Referring Provider Internal Medicine Hematology & Oncology; Visit Provider Internal Medicine Hematology & Oncology
DX: C64.1 Malignant neoplasm of right kidney, except renal pelvis (principal); D72.828 Other elevated white blood cell count
CPT/HCPCS: 36415; 80053; 82607; 82728; 82746; 83010; 83540; 83550; 83615; 85025; 85046

== ENCOUNTER 2025-05-03 13:24 | Outpatient (RCR) | payer MEDICARE, MEDICAID, SELFPAY | END 2025-05-09 23:59 | disposition home or self-care (01) | LOC: SCTC 13:24 | PROVIDERS: PCP Nurse Practitioner Family; Referring Provider Nurse Practitioner Family; Visit Provider Nurse Practitioner Family | DX: C64.1 Malignant neoplasm of right kidney, except renal pelvis (principal); C78.02 Secondary malignant neoplasm of left lung; C78.01 Secondary malignant neoplasm of right lung; C78.6 Secondary malignant neoplasm of retroperitoneum and peritoneum; Z86.711 Personal history of pulmonary embolism; Z79.01 Long term (current) use of anticoagulants; Z86.73 Personal history of transient ischemic attack (TIA), and cerebral infarction without residual deficits; I10 Essential (primary) hypertension; E61.1 Iron deficiency; S09.90XA Unspecified injury of head, initial encounter; S40.819A Abrasion of unspecified upper arm, initial encounter; W19.XXXA Unspecified fall, initial encounter | CPT/HCPCS: 99212; G0463 ==

== ENCOUNTER → 2025-05-26 | Outpatient (CLI) | payer MEDICARE, MEDICAID, SELFPAY ==
[2025-05-26 13:14] LABS: Basophils # (Auto) 0.1 Thou/mm3 (0.0-0.2); Basophils % (Auto) 1 % (0-2.5); Eosinophils # (Auto) 0.1 Thou/mm3 (0.0-0.5); Eosinophils % (Auto) 1 % (0-10); Hematocrit 37.5 % (41.0-53.0); Hemoglobin 13.3 g/dL (13.5-16.0); Immature Granulocytes Auto 0.02 Thou/mm3 (0.00-0.00); Lymphocytes # (Auto) 4.9 Thou/mm3 (1.0-4.8); Lymphocytes % (Auto) 49 % (10-50); Mean Corpuscular HGB Conc 35.5 g/dl (31.0-37.0); Mean Corpuscular Hemoglobin 27.0 pg (25.0-35.0); Mean Corpuscular Volume 76 fL (80-100); Monocytes # (Auto) 0.9 Thou/mm3 (0.0-0.8); Monocytes % (Auto) 8 % (0-12); Neutrophils # (Auto) 4.1 Thou/mm3 (1.8-7.7); Neutrophils % (Auto) 41 % (37-80); Nucleated Red Blood Cell # 0.00 Thou/mm3 (0.00-0.00); Nucleated Red Blood Cell % 0 /100 WBC (0); Platelet Count 264 Thou/mm3 (140-440); RDW Standard Deviation 42.8 fL (35.1-43.9); Red Blood Count 4.93 Miln/mm3 (4.50-5.90); White Blood Count 10.1 Thou/mm3 (3.8-10.6)
[2025-05-26 13:39] LABS: Alanine Aminotransferase < 7 U/L (10-49); Albumin, Serum 4.2 gm/dL (3.4-4.8); Albumin/Globulin Ratio 1.8 (1.2-2.2); Alkaline Phosphatase 55 U/L (46-116); Anion Gap 10 (7-16); Aspartate Amino Transferase 16 U/L (0-34); BUN/Creatinine Ratio 6 Ratio (12-20); Bilirubin,Total 0.9 mg/dL (0.3-1.2); Blood Urea Nitrogen 7 mg/dL (9-23); Calcium 10.3 mg/dL (8.3-10.6); Calcium (Corrected) 10.3 mg/dL (8.5-10.1); Carbon Dioxide 28.2 mMol/L (20.0-31.0); Cardiac Risk Estimate 2.0 RATIO (4.0-6.7); Chloride 105 mMol/L (98-107); Cholesterol 98 mg/dL (132-200); Creatinine (Component) 1.1 mg/dL (0.6-1.3); Globulin 2.4 gm/dL (2.3-3.5); Glucose 101 mg/dL (74-106); HDL Cholesterol 50 mg/dL (40-60); LDL Cholesterol,Calculated 27 mg/dL (0-130); Osmolality,Calculated 282 (275-295); Potassium 3.4 mMol/L (3.4-5.1); Sodium 143 mMol/L (136-145); Total Protein 6.6 gm/dL (5.7-8.2); Triglycerides 104 mg/dL (30-150); eGFR > 60 See Note
== END | disposition home or self-care (01) ==
LOC: COPL 12:36
PROVIDERS: PCP Nurse Practitioner Family; Referring Provider Internal Medicine Cardiovascular Disease; Visit Provider Internal Medicine Cardiovascular Disease
DX: C61 Malignant neoplasm of prostate (principal); C64.9 Malignant neoplasm of unspecified kidney, except renal pelvis; G47.30 Sleep apnea, unspecified; I10 Essential (primary) hypertension; I63.9 Cerebral infarction, unspecified; Z79.01 Long term (current) use of anticoagulants; Z86.711 Personal history of pulmonary embolism
CPT/HCPCS: 36415; 80053; 80061; 85025

== ENCOUNTER → 2025-06-15 | Outpatient (CLI) | payer MEDICARE, MEDICAID, SELFPAY ==
--- NOTE | 2025-06-15 16:11 | XR_ITS ---
Examination: Duplex scan of the lower extremity, unilateral left complete Date and time of exam: June 15, 2025, 1622 hours INDICATIONS: Left leg swelling beginning 7 days ago, patient is anticoagulated Technique: Duplex scan of the extremity veins using B-mode/grayscale imaging and Doppler spectral analysis and color flow Attention is directed to internal echogenicity, compression and augmentation involving these veins, color flow assessment, spectral analysis Findings: Major deep venous structures in the extremity demonstrate normal course and caliber. There is no evidence of deep vein thrombosis. Normal color flow and spectral analysis Impression: Negative for DVT..
== END | disposition home or self-care (01) ==
PROVIDERS: PCP Nurse Practitioner Family; Referring Provider Nurse Practitioner Family; Visit Provider Nurse Practitioner Family
DX: M79.2 Neuralgia and neuritis, unspecified (principal); M79.89 Other specified soft tissue disorders; Z86.73 Personal history of transient ischemic attack (TIA), and cerebral infarction without residual deficits
CPT/HCPCS: 93971

== ENCOUNTER → 2025-07-02 | Outpatient (CLI) | payer MEDICARE, MEDICAID, SELFPAY ==
[2025-07-02 16:26] LABS: Basophils # (Auto) 0.1 Thou/mm3 (0.0-0.2); Basophils % (Auto) 1 % (0-2.5); Eosinophils # (Auto) 0.0 Thou/mm3 (0.0-0.5); Eosinophils % (Auto) 0 % (0-10); Hematocrit 33.0 % (41.0-53.0); Hemoglobin 12.1 g/dL (13.5-16.0); Immature Granulocytes Auto 0.02 Thou/mm3 (0.00-0.00); Immature Reticulocyte Fraction 9.9 % (2.3-13.4); Lymphocytes # (Auto) 4.8 Thou/mm3 (1.0-4.8); Lymphocytes % (Auto) 50 % (10-50); Mean Corpuscular HGB Conc 36.7 g/dl (31.0-37.0); Mean Corpuscular Hemoglobin 27.3 pg (25.0-35.0); Mean Corpuscular Volume 74 fL (80-100); Monocytes # (Auto) 0.8 Thou/mm3 (0.0-0.8); Monocytes % (Auto) 8 % (0-12); Neutrophils # (Auto) 4.0 Thou/mm3 (1.8-7.7); Neutrophils % (Auto) 41 % (37-80); Nucleated Red Blood Cell # 0.00 Thou/mm3 (0.00-0.00); Nucleated Red Blood Cell % 0 /100 WBC (0); Platelet Count 271 Thou/mm3 (140-440); RDW Standard Deviation 42.5 fL (35.1-43.9); Red Blood Count 4.44 Miln/mm3 (4.50-5.90); Reticulocyte % (Auto) 1.3 % (0.5-1.5); Reticulocyte Absolute Auto 55.5 Biln/L (25.0-75.0); Reticulocyte Hgb Content 31.6 pg (28.0-35.0); White Blood Count 9.7 Thou/mm3 (3.8-10.6)
[2025-07-02 16:45] LABS: Ferritin 69 ng/mL (10.5-307.3); Folate 11.58 ng/mL (>5.38); Iron 71 mcg/dL (65-175); Percent Iron Saturation 23 % (20-55); Total Iron Binding Capacity 306 mcg/dL (250-425); Unsaturated Iron Binding 235 (225-295); Vitamin B12 746 pg/mL (211-911)
[2025-07-02 16:54] LABS: Alanine Aminotransferase 10 U/L (10-49); Albumin, Serum 4.5 gm/dL (3.4-4.8); Albumin/Globulin Ratio 2.4 (1.2-2.2); Alkaline Phosphatase 47 U/L (46-116); Anion Gap 11 (7-16); Aspartate Amino Transferase 23 U/L (0-34); BUN/Creatinine Ratio 12 Ratio (12-20); Bilirubin,Total 0.8 mg/dL (0.3-1.2); Blood Urea Nitrogen 12 mg/dL (9-23); Calcium 9.7 mg/dL (8.3-10.6); Calcium (Corrected) 9.7 mg/dL (8.5-10.1); Carbon Dioxide 26.8 mMol/L (20.0-31.0); Chloride 104 mMol/L (98-107); Creatinine (Component) 1.0 mg/dL (0.6-1.3); Globulin 1.9 gm/dL (2.3-3.5); Glucose 105 mg/dL (74-106); LDH (Lactate Dehydrogenase) 134 U/L (120-246); Osmolality,Calculated 282 (275-295); Potassium 3.7 mMol/L (3.4-5.1); Sodium 142 mMol/L (136-145); Total Protein 6.4 gm/dL (5.7-8.2); eGFR > 60 See Note
[2025-07-12 07:01] LABS: Haptoglobin* 89 mg/dL (43-212)
== END | disposition home or self-care (01) ==
LOC: SCTO 15:54
PROVIDERS: PCP Nurse Practitioner Family; Referring Provider Nurse Practitioner Family; Visit Provider Nurse Practitioner Family
DX: C64.1 Malignant neoplasm of right kidney, except renal pelvis (principal); D72.828 Other elevated white blood cell count
CPT/HCPCS: 36415; 80053; 82607; 82728; 82746; 83010; 83540; 83550; 83615; 85025; 85046

== ENCOUNTER 2025-08-11 08:31 | Outpatient (RCR) | payer MEDICARE, MEDICAID, SELFPAY ==
--- NOTE | 2025-08-11 11:46 | CTCFLWUP_ITS ---
Patient: RENALDO CONWAY : 1945 Page 7 of 9 FOLLOW UP NOTE DATE OF SERVICE: 08/11/2025 NAME: RENALDO CONWAY ACCOUNT: [id number] : 1945 AGE: 80 INTERVAL HISTORY: I am seeing Mr. Conway for follow-up visit. Patient was seen at [facility] with hemorrhagic stroke and advised to stop Xarelto. 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 Patient also found to have total carotid occlusion patient was recommended to be taken to [facility]. Patient now is brought in wheelchair by his and her daughter. Patient at baseline is unable to help her help him rise from the bed or go to use toilet. Patient's is having difficulty taking care of him. She is requesting him to be sent to rehab place. Advised family to take patient to the emergency room and then patient can be placed in convalescent home for rehabilitation. For right kidney cancer patient need restaging scan with PET CT scan and brain MRI to evaluate for metastatic cancer. 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 S/p pembrolizumab and axitinib (05/25/2021?08/08/2020). Patient requested a break from pembrolizumab Currently on axitinib 1 mg p.o. daily. Hypertension. Significant worsening of hypertension with pazopanib in the past. 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 DIAGNOSIS: Malignant neoplasm of right kidney, except renal pelvis [ICD10] C64.1 DATE OF DIAGNOSIS: 07/29/2012 STAGE/TNM: Stage IV right kidney renal cell carcinoma, clear?cell type with pulmonary mets as well as retroperitoneal mets. TREATMENT HISTORY: Care?Plan Start?Date Cycle Day Intent KEYTRUDA?200 05/25/2021 1 21 Palliative HISTORY OF PRESENT ILLNESS: Renaldo Conway is a 80-year-old ENG speaking male with history of hypertension has the following oncology history. 07/29/2012: Mr. Conway had a right nephrectomy. 11/18/2012: Patient had robotic prostatectomy for prostate cancer? 03/24/2016: Patient had lumbar depression with tumor resection for metastatic renal cell carcinoma April 2016: Patient was started on pazopanib. Unfortunately Mr. Conway was not able to tolerate pazopanib which was causing significant hypotension. Eventually pazopanib discontinued in March 2017. 11/20/2018: Mr. 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 August 2020: Mr. Conway was diagnosed with pulmonary embolus at [facility]. He was started on Xarelto. 03/31/2021: Patient had lumbar spine surgery done at [facility]. Pathology report is not available to me. 04/24/2021: CT scan of the chest with contrast? 05/25/2021: Patient received first cycle of pembrolizumab. Patient also started taking axitinib 1 mg p.o. twice daily on the same day. 09/06/2021: MRI of the lumbar spine without contrast? 10/05/2021: CT scan of the chest abdomen and pelvis with IV contrast? 10/05/2021: CT scan of the lumbar spine without contrast? 03/31/2022: 08/27/2022: CT scan of the chest abdomen and pelvis with IV contrast 12/26/2022: CT scan of the chest abdomen and pelvis with IV contrast 04/23/2023: CT scan of the chest abdomen and pelvis with IV contrast 08/12/2023: PET/CT scan 04/20/2024: CT scan of the chest abdomen and pelvis with IV contrast OTHER MEDICAL HISTORY/CONDITIONS: Hypertension Diabetes FAMILY HISTORY: SOCIAL HISTORY: MEDICATIONS: 1. amlodipine - 10 mg 1 tab Daily 2. axitinib - 1 mg 1 tab Daily 3. ondansetron - 4 mg 1 tab As directed 4. pantoprazole - 40 mg 1 tab Daily 5. rosuvastatin - 10 mg 1 tab Daily 6. Stimulant Laxative Plus - 8.6-50 mg 2 tab Twice a Day 7. timolol - 0.25 % As directed 8. travoprost - 0.004 % As directed Medications Last Reconciled by Eve Rodarte MD on 08/11/2025 ALLERGIES: No Known Drug Allergies REVIEW OF SYSTEMS: A complete 14-point review of systems was performed and is negative except as noted in interval history. PHYSICAL EXAMINATION: VITAL SIGNS: Temperature?97.9, B/P?103/66, Oxygen?Saturation?99% PAIN: 0 - No pain ECOG Performance Status: 4 - Completely disabled; no self-care; bedridden EYE: Conjunctivae is white pupils equal MOUTH: No lesions CHEST: No respiratory distress CARDIAC: Rhythm regular. EXTREMITIES: No cyanosis. Patient is alert oriented x 3 but have a slurry speech and have loss of words. Patient also walks with walker and has stepping gait. Abrasion to arms and right side of head. LABORATORY DATA: I have personally reviewed and interpreted each of the patient?s relevant lab tests, abnormal findings are below: Date 07/02/25 ??WHITE?BLOOD?COUNT?(Thou/mm3) 9.7 ??RED?BLOOD?COUNT?(Miln/mm3) 4.44?L ??HEMOGLOBIN?(gm/dl) 12.1?L ??HEMATOCRIT?(%) 33.0?L ??PLATELET?COUNT?(Thou/mm3) 271 ??NEUTROPHILS?%,?AUTO?(%) 41 ??LYMPH?%,?AUTO?(%) 50 ??NEUTROPHILS,?AUTO?(Thou/mm3) 4.0 ??GLUCOSE,RANDOM?(mg/dL) 105 ??BLOOD?UREA?NITROGEN?(mg/dL) 12 ??CREATININE?(mg/dL) 1.00 ??SODIUM?(mmol/L) 142 ??POTASSIUM?(mmol/L) 3.7 ??CHLORIDE?(mmol/L) 104 ??CrCl?(CandG)?(ml/min) 73.88 ??AST/SGOT?(Unit/L) 23 ??ALT/SGPT?(Unit/L) 10 ??ALKALINE?PHOSPHATASE?(Unit/L) 47 ??BILIRUBIN,?TOTAL?(mg/dL) 0.8 ??PROTEIN?TOTAL?(gm/dl) 6.4 ??ALBUMIN,?SERUM?(gm/dl) 4.5 ??GLOBULIN?(gm/dl) 1.9?L ??ALBUMIN/GLOBULIN?RATIO 2.4?H ??CALCIUM,?SERUM?(mg/dL) 9.7 ??CALCIUM?SERUM?(CORRECTED)?(mg/dL) 9.7 ??RETICULOCYTE?ABSOLUTE?AUTO?(Biln/L) 55.5 ??TOTAL?IRON?BINDING?CAP?(S*)?(mcg/dL) 306 ??UNBOUND?IBC?(mcg/dL) 235 ASSESSMENT/PLAN: Renaldo Conway, male patient with history of metastatic renal cell carcinoma, clear cell type, and recent stroke, presents with worsening pulmonary and retroperitoneal metastases and a recent fall resulting in bruising and head injury. Metastatic renal cell carcinoma, clear-cell type with worsening pulmonary mets as well as retroperitoneal mets as described above. Patient was treated with pazopanib in the past which needed to be discontinued due to significant hypertension. Mr. Conway is currently on axitinib 1 mg started on 05/25/2021, patient reports previously he was unable to tolerate increased dosage due to increase in hypertension. Patient stopped axitinib and keytruda after he was in remission, Assessment: Patient has a history of metastatic renal cell carcinoma, clear cell type, with worsening pulmonary and retroperitoneal metastases. Previously treated with pazopanib, which was discontinued due to severe hypertension. Currently on axitinib 1 mg, started on January 22, 2025, after a period of re mission. A CT scan on July 22, 2024, showed a new 10-mm nodule in the lung. MRI of the abdomen and PET-CT were negative for metastatic disease. Betsy was negative. I do not have any recent imaging and will order PET CT scan and brain MRI to restage Mr. Conway if patient can undergo imaging recent Fall with Head Injury and recent stroke Patient's neurosurgery stopped Xarelto Patient do not want to take blood thinner Patient is a high risk for stroke Advised to follow-up with the cardiology and neurosurgery Also have a history of pulmonary embolism Advised to go to the emergency room so he can be placed to an convalescent home Follow-up with oncology in 2 to 3 months once patient has recovered ORDERS: Order # Description [id number] CT Scan + Chest + Abdomen and Pelvis + With Contrast [id number] Comprehensive Metabolic Panel - 12 + CBC with Auto Diff [id number] MD Follow Up 2 Months [id number] MRI + Brain + With Contrast RETURN TO CLINIC: I reviewed the diagnosis, prognosis, and recommended treatment/procedure options with the patient (and/or their legal signs and displays sales representative), including the potential benefits, risks, side effects and alternative therapies. We also discussed the option of no treatment and the possibility of clinical trial participation, if applicable. All questions were addressed, and they demonstrated understanding. They provided informed consent to proceed with the proposed plan of care. BILLING AND COMPLIANCE: I reviewed external records from providers outside my specialty as summarized above. I spent a total of 50 minutes on this patient?s care on the day of their visit excluding time spent related to any billed procedures. This time includes time spent with the patient as well as time spent documenting in the medical record, reviewing patients records and tests, obtaining history, placing orders, communicating with other healthcare professionals, counseling the patient, family or caregiver, and/or care coordination for the diagnoses above. Electronically Signed by: Davide Carrera MD T: 11:44 AM CC: PCP: Paty Richards (tuleriver) Referring: Paty Richards (tuleriver) This document was completed utilizing speech recognition software. Grammatical errors, random word insertions, pronoun errors, and incomplete sentences are an occasional consequence of this system due to software limitations, ambient noise, and hardware issues. Any formal questions or concerns about the content, text or information contained within the body of this dictation should be directly addressed to the provider for clarification.
== END 2025-09-08 23:59 | disposition home or self-care (01) ==
LOC: SCTC 08:31
PROVIDERS: PCP Nurse Practitioner Family; Referring Provider Nurse Practitioner Family; Visit Provider Internal Medicine Hematology & Oncology
DX: C64.1 Malignant neoplasm of right kidney, except renal pelvis (principal); C78.6 Secondary malignant neoplasm of retroperitoneum and peritoneum; C78.02 Secondary malignant neoplasm of left lung; C78.01 Secondary malignant neoplasm of right lung; Z86.73 Personal history of transient ischemic attack (TIA), and cerebral infarction without residual deficits; I10 Essential (primary) hypertension
CPT/HCPCS: 99212; G0463

== ENCOUNTER 2025-08-11 11:45 | Emergency (ER) | payer MEDICARE, MEDICAID, SELFPAY ==
[2025-08-11 12:04] VITALS: BP 101/65; PULSE 66; RESP 16; TEMP 36.7; O2SAT 100; BMI 29.7
--- NOTE | 2025-08-11 12:44 | EKG_ITS ---
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
[2025-08-11 14:07] LABS: Basophils # (Auto) 0.1 Thou/mm3 (0.0-0.2); Basophils % (Auto) 1 % (0-2.5); Eosinophils # (Auto) 0.1 Thou/mm3 (0.0-0.5); Eosinophils % (Auto) 0 % (0-10); Hematocrit 32.1 % (41.0-53.0); Hemoglobin 11.7 g/dL (13.5-16.0); Immature Granulocytes Auto 0.04 Thou/mm3 (0.00-0.00); Lymphocytes # (Auto) 4.3 Thou/mm3 (1.0-4.8); Lymphocytes % (Auto) 37 % (10-50); Mean Corpuscular HGB Conc 36.4 g/dl (31.0-37.0); Mean Corpuscular Hemoglobin 27.9 pg (25.0-35.0); Mean Corpuscular Volume 77 fL (80-100); Monocytes # (Auto) 1.1 Thou/mm3 (0.0-0.8); Monocytes % (Auto) 10 % (0-12); Neutrophils # (Auto) 6.0 Thou/mm3 (1.8-7.7); Neutrophils % (Auto) 52 % (37-80); Nucleated Red Blood Cell # 0.00 Thou/mm3 (0.00-0.00); Nucleated Red Blood Cell % 0 /100 WBC (0); Platelet Count 422 Thou/mm3 (140-440); RDW Standard Deviation 39.9 fL (35.1-43.9); Red Blood Count 4.19 Miln/mm3 (4.50-5.90); White Blood Count 11.7 Thou/mm3 (3.8-10.6)
--- NOTE | 2025-08-11 14:10 | PC.SS ---
Addendum entered by Jojo Rayo 08/11/25 15:49: Alexandra from [facility] accepted patient. Patient's family informed SS that the [facility] will be able to transport patient to [facility] within 45 min to an hour. SS updated Alexandra and patient's nurse, April. Original Note: SS follow up note: SS was contacted by Deny from PT to confirm if patient was going to get admitted. SS met with patient and patient's , Amanda in regards to discharge plan. Amanda reports it has been getting difficult to assist patient with his ADL's at home and would like SNF placement for patient. SS confirmed Prior hospitalizations and patient's Amanda reported that patient discharged from [facility] in [place] and was there from Aug 02-. SS submitted SNF inquiry through [employer] plat form. First choice is [facility]. However [facility] is not taking any admissions until further notice. Second choice was [facility]. SS contacted Alexandra and she informed SS she is able to accept patient, however needs to verify if patient met his 3 midnights admission at [facility].
[2025-08-11 14:25] LABS: B-Type Natriuretic Peptide < 20 pg/mL (0-100)
[2025-08-11 14:27] LABS: Alanine Aminotransferase 25 U/L (10-49); Albumin, Serum 4.5 gm/dL (3.4-4.8); Albumin/Globulin Ratio 1.7 (1.2-2.2); Alkaline Phosphatase 56 U/L (46-116); Anion Gap 11 (7-16); Aspartate Amino Transferase 26 U/L (0-34); BUN/Creatinine Ratio 18 Ratio (12-20); Bilirubin,Total 0.7 mg/dL (0.3-1.2); Blood Urea Nitrogen 21 mg/dL (9-23); Calcium 10.1 mg/dL (8.3-10.6); Calcium (Corrected) 10.1 mg/dL (8.5-10.1); Carbon Dioxide 25.0 mMol/L (20.0-31.0); Chloride 104 mMol/L (98-107); Creatinine (Component) 1.2 mg/dL (0.6-1.3); Estimated Creatinine Clearance 61.6 mL/min (>60); Globulin 2.6 gm/dL (2.3-3.5); Glucose 100 mg/dL (74-106); Lipase 28 U/L (12-53); Magnesium 2.0 mg/dL (1.6-2.6); Osmolality,Calculated 282 (275-295); Potassium 4.1 mMol/L (3.4-5.1); Sodium 140 mMol/L (136-145); Total Protein 7.1 gm/dL (5.7-8.2); Troponin I < 0.002 ng/mL (0.0-0.045); eGFR > 60 See Note
[2025-08-11 14:30] LABS: INR 1.1 (0.9-1.3); Partial Thromboplastin Time 29.9 Seconds (22.0-36.0); Prothrombin Time 11.3 Seconds (9.0-12.2)
--- NOTE | 2025-08-11 14:35 | PC.PT ---
PT spoke with FLORIAN Uribe. Patient has medicare and already has qualified his 3 midnights via admission at a different hospital recently. Patient is able to be D/C from the ED straight to rehab without PT evaluation. Will cancel PT evaluation at this time.
--- NOTE | 2025-08-11 15:03 | EDNOTE_ITS ---
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 from [facility] (discharged 5 days ago) presents to the ED today, referred by his oncologist Dr. Carrera for evaluation of weakness. Patient reportedly has felt weak since being discharged from [facility] 5 days ago. However, family noted they are havign difficulty caring for him at home. Per the , a administrator social welfare is scheduled to go to their home tomorrow home home health evaluation. No other associated symptoms or complaints reported. Related Data Home Medications ?Medication ?Instructions ?Recorded ?Confirmed axitinib 1 mg tablet (Inlyta) 1 mg PO DAILY 11/26/22 1 10/12/24 travoprost 0.004 % eye drops 1 drp ophthalmic (eye) HS 11/26/22 03/17/25 (Travatan Z) fluoxetine 10 mg capsule 20 mg PO DAILY 07/01/2406/03 pantoprazole 40 mg tablet,delayed 40 mg PO DAILY 07/0103/17/25 release timolol 0.5 % eye drops (Betimol) 1 drp ophthalmic (ey e) BID 07/01/24 03/17/25 amlodipine 5 mg tablet 5 mg PO DAILY 03/17/2503/17 ergocalciferol (vitamin D2) 1,250 1,250 mcg PO QWEEK 0 03/17/25 03/17/25 mcg (50,000 unit) capsule ferrous sulfate 325 mg (65 mg 325 mg PO BID 03/17/25 0 03/17/25 iron) tablet (FeroSul) ondansetron 4 mg disintegrating 4 mg PO Q8H PRN nausea and vomiting 03/17/25 03/17/25 tablet rivaroxaban 15 mg tablet (Xarelto) 15 mg PO QDAY 03/1703/17/25 rosuvastatin 10 mg tablet 10 mg PO QDAY 03/17/2503/17 sennosides 8.6 mg-docusate sodium 2 tab-cap PO BID PRN constipation 03/17/25 03/17/25 50 mg tablet (Stimulant Laxative Plus) Allergies Allergy/AdvReac Type Severity Reaction Status Date / Time hornet venom Allergy Severe Swelling Verified 08/11/25 11:51 of Lip/Tongue/Throat Review of Systems Review of Systems Systems Reviewed: All systems reviewed, normal except as documented Past Medical History Past Medical History NEUROLOGIC: Positive Neurological Disorders (cerebral hematoma), Cerebrovascular Accident (february 2025) and Peripheral Neuropathy CARDIAC: Positive Cardiac Disorders and Hypertension RESPIRATORY: Positive Sleep Apnea GASTROINTESTINAL: Positive Gastrointestinal Disorders and Gastroesophageal Reflux Disease GENITOURINARY: Positive Renal Disease and Prostate Cancer MUSCULOSKELETAL: Positive Musculoskeletal Disorders and Arthritis ENT: Positive Cataracts and Glaucoma HEMATOLOGIC: Positive Clotting Problems PSYCHO/SOCIAL: Positive Anxiety OTHER HISTORY: Positive Radiation Therapy, Chicken Pox, Measles, Mumps, Cancer (kidney ca) and Prostate Cancer Surgical History SURGICAL: Positive Eye Surgery, Abdominal Surgery and Nephrectomy (unknown which side) Social History SMOKING STATUS: Never smoker SECOND HAND EXPOSURE: No ED Exam Narrative Physical exam: GENERAL APPEARANCE: alert and oriented x 4, well-developed, well-nourished, no acute distress HEENT: Normocephalic, well healed surgical scars left forehead measuring about 2cm with bridger in place; pupils equal, round, reactive to light; EOMI; mucous membranes pink, moist; oropharynx clear NECK: Supple LUNGS: CTABL; no wheezes, no rales, no rhonchi HEART: Regular rate, regular rhythm; normal S1, S2; no murmurs ABDOMEN: non distended; normal BS; soft, no tenderness, no guarding, no rebound; no masses, no organomegaly, no hernia BACK: no CVA tenderness EXTREMITIES: BLE weakness; atraumatic; no edema NEUROLOGIC: awake; alert and oriented x4; cranial nerves II-XII grossly intact; BLE weakness PSYCHIATRIC: appropriate mood and affect SKIN: warm, dry, normal color; no rashes Course Quality Measures none Orders Category Date Time Status Loom Operator NOW Care 08/11/25 12:44 Active Consult Occupational Therapist Rehab Manager NOW Care 08/11/25 12:20 Completed EKG (ED ONLY) *Do not use* NOW Care 08/11/25 12:44 Completed EKG (ED Only) Stat Exams 12/03/25 12:44 Draft B-Type Natriuretic Peptide Stat Lab 08/11/25 14:00 Completed CBC Stat Lab 08/11/25 14:00 Completed Comprehensive Metabolic Panel Stat Lab 08/11/25 14:00 Completed Lipase Stat Lab 08/11/25 14:00 Completed Magnesium Stat Lab 08/11/25 14:00 Completed Partial Thromboplastin Time Stat Lab 08/11/25 14:00 Completed Prothrombin Time with INR Stat Lab 08/11/25 14:00 Completed Troponin I Stat Lab 08/11/25 14:00 Completed UA, C/S IF [Urinalysis, C/S if Indicated] Stat Lab 08/11/25 12:44 Ordered HYDROcodone*/APAP 5/325 [[place] 5/325] Med 08/11/25 15:16 Discontinued 1 tab PO X1 ONE Vital Signs Vital signs: Vital Signs Temperature 98.1 F 08/11/25 12:04 Pulse Rate 66 08/11/25 12:04 Respiratory Rate 16 08/11/25 12:04 Blood Pressure 101/65 08/11/25 12:04 Pulse Oximetry (%) 100 08/11/25 12:04 Oxygen Delivery Method Room Air 08/11/25 12:04 Pulse ox is 100% on room air which is adequate. Weakness MDM Narrative MDM Narrative:: Christina Glover, am scribing for and in the presence of Dr. Sandoval. I spoke with our administrator social welfare who states the patient meets criteria for SNF/Rehab placement and family are in agreement with plan for placement. 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 from [facility] (discharged 5 days ago) How is presenting disease/condition affected by chronic disease/condition?: exacerbated by Evaluation data The following diagnostics were reviewed and interpreted by me:: lab results and EKG tracing(s) Lab and/or radiology exams considered but not ordered:: None Interpretation Summary: EKG @ 14:10, interpreted by me, normal sinus rhythm, rate 71, no STEMI. Medications / Prescriptions Medications or Prescriptions considered but not ordered:: None Medication administrations:: Medication Administration History Discontinued Medications Hydrocodone Bitart/Acetaminophen (Hydrocodone/Apap 5/325 Tablet) 1 tab PO X1 ONE Stop: 08/11/25 15:17 Last Admin: 08/11/25 15:40 Dose: 1 tab Documented By: SUSANA See above Consultations Consultation(s) initiated? (list below): No Diagnosis Weakness Differential Diagnosis: anemia, hypoglycemia, hypothyroidism, sepsis and dehydration Most likely diagnosis given after review of the tests above:: Generalized weakness Admission Indicated Admission indicated?: not indicated Admission Request Was there a request for admission?: No Disposition Plan Disposition Plan: Discharge Discharge Attestation Discharge Attestation: The patient and all family members were given an opportunity to ask questions and understood the discharge instructions. Discharge instructions specifically effects, indications for sooner follow up or return to the emergency department, and the expected course of current diagnosis. Patient condition: Stable Discharge Plan Plan Patient Disposition: Xfer Skilled Nsg Fac (SNF) Discharge Disposition comment: [facility] Acute Prescriptions/Referrals Prescriptions/Med Rec: No Action fluoxetine 10 mg capsule 20 mg PO DAILY Patient Comments: TAKE 1 CAPSULE BY MOUTH EVERY DAY pantoprazole 40 mg tablet,delayed release (DR/EC) 40 mg PO DAILY Patient Comments: TAKE 1 TABLET BY MOUTH EVERY DAY timolol [Betimol] 0.5 % drops 1 drp OPHTHALMIC (EYE) BID Patient Comments: INSTILL 1 DROP IN BOTH EYES TWICE DAILY Rx Instructions: 1 drop each eye travoprost [Travatan Z] 0.004 % drops 1 drp OPHTHALMIC (EYE) HS Patient Comments: 1 drop Both Eyes every evening Rx Instructions: 1 drop each eye Inlyta 1 mg tablet 1 mg PO DAILY Patient Comments: take 1 tab by mouth once a day as directed rosuvastatin 10 mg tablet 10 mg PO QDAY Patient Comments: TAKE 1 TABLET BY MOUTH EVERY DAY sennosides-docusate sodium [Stimulant Laxative Plus] 8.6-50 mg tablet 2 tab-cap PO BID PRN (Reason: constipation) ferrous sulfate [FeroSul] 325 mg (65 mg iron) tablet 325 mg PO BID Patient Comments: TAKE 1 TABLET BY MOUTH TWICE DAILY WITH MEALS Xarelto 15 mg tablet 15 mg PO QDAY Rx Instructions: must administer with evening meal ondansetron 4 mg tablet,disintegrating 4 mg PO Q8H PRN (Reason: nausea and vomiting) ergocalciferol (vitamin D2) 1,250 mcg (50,000 unit) capsule 1,250 mcg PO QWEEK Patient Comments: TAKE ONE CAPSULE BY MOUTH ONCE A WEEK amlodipine 5 mg tablet 5 mg PO DAILY Patient Comments: TAKE 1 TABLET BY MOUTH EVERY NIGHT AT BEDTIME Referrals: Bertin)Paty PA-C [Primary Care Provider] - In 1 week Problem List Clinical Impression: Generalized weakness Patient/Caregiver Discharge Instructions Education Materials: ED Weakness (Uncertain Cause) Print Language: Armenian Stand Alone Forms: Sandra Award Info., Patient Portal Info Letter
[2025-08-11] MEDS: HYDROcodone/APAP 5/325 TABLET 1 TAB PO (15:40)
[2025-08-11 16:00] VITALS: BP 108/66; PULSE 75; RESP 14; TEMP 36.7; O2SAT 100
== END 2025-08-11 15:43 | disposition skilled nursing facility (03) ==
PROVIDERS: Emergency Provider Emergency Medicine; PCP Nurse Practitioner Family
DX: R53.1 Weakness (principal); I10 Essential (primary) hypertension; R94.31 Abnormal electrocardiogram [ECG] [EKG]; C78.01 Secondary malignant neoplasm of right lung; C78.6 Secondary malignant neoplasm of retroperitoneum and peritoneum; Z90.5 Acquired absence of kidney; Z86.73 Personal history of transient ischemic attack (TIA), and cerebral infarction without residual deficits; Z79.01 Long term (current) use of anticoagulants; Z75.1 Person awaiting admission to adequate facility elsewhere
CPT/HCPCS: 36415; 80053; 81001; 83690; 83735; 83880; 84484; 85025; 85610; 85730; 93005; 99212; 99283; A9270; G0463